=== PATIENT | female | born 1950 | race Caucasian/White ===

== ENCOUNTER 2019-12-25 17:35 | Emergency (ER) | payer MEDICARE, OTHER, SELFPAY ==
--- NOTE | ~2019-12-25 | CT_ITS ---
EXAMINATION: CT abdomen pelvis wo con DATE: 12/25/2019 18:43 INDICATION: Kidney stone TECHNIQUE: Computed tomography (CT) of the abdomen and pelvis was performed without intravenous contr ast. The dose-length product was 208.89 mGy-cm. Automated exposure control and iterative reconstruction technique were employed. COMPARISON: CT dated 09/29/2018 FINDINGS: Bibasilar dependent atelectasis. There is a left breast implant. Heart size normal. No sign ificant pleural or pericardial effusion. The liver, spleen, pancreas, adrenal glands are unremarkable. There is left renal atrophy. Right kidn ey within normal limits. There are pelvic phleboliths. No renal/ureteral stones. There is thickening of the sigmoid:. Large amount of retained fecal material in the colon. No free air. Possible trace fr ee fluid in the pelvis. There is a right hip arthroplasty. There is osteoarthritis of the left hip. T here is levoscoliosis of the lumbar spine. Mild atherosclerosis of the aorta. No aneurysm. No lymphad enopathy. IMPRESSION: 1. No renal/ureteral stones or hydronephrosis. 2: Thickening of the sigmoid colon, suspicious for colitis. No definite obstruction. 3: Severely atrophic left kidney. Reviewed, dictated and finalized at location A. IT[employer] CONTR[employer] CHEMIST IMPRESSION: 1. No renal/ureteral stones or hydronephrosis. 2: Thickening of the sigmoid colon, suspicious for colitis. No definite obstruc tion. 3: Severely atrophic left kidney.
[2019-12-25 17:47] VITALS: BP 100/66; PULSE 106; RESP 18; TEMP 37.8; O2SAT 97
--- NOTE | 2019-12-25 17:58 | ED.NAVMDI ---
HPI - Nausea/Vomiting/Diarrhea General Chief complaint: Nausea/Vomiting/Diarrhea Stated complaint: SYNCOPE/DIARRHEA Time Seen by Provider: 12/25/19 17:57 Source: patient Mode of arrival: ambulatory Limitations: no limitations History of Present Illness HPI Narrative: A 69 y/o female presents to the ED with c/o diarrhea. Pt states that the diarrhea started 1 week ago and has been constant since. She describes the diarrhea as gas with little dribbles of stool. Pt reports frequent urination and ABD bloating, but denies N/V, decrease liquid intake, fever, and chills. She adds that she has slight ABD pain before she has a BM. Pt notes that she was seen at her PCP's office today and was sent to the ED for further evaluation. She does not note having these symptoms before. Pt has a PMHx of asthma and HTN and takes Aspirin and Xarelto daily. MD elicited complaint: diarrhea Onset (ago): week(s) (1) Description of diarrhea: other ( gas with little dribbles ) Associated nausea: No Associated abdominal pain: No Associated symptoms: other (Frequent urination, ABD bloating, slight ABD pain) Related Data Home Medications Medication Instructions Recorded Confirmed aspirin 81 mg tablet,delayed 81 mg PO DAILY 11/05/19 release cetirizine 10 mg tablet 5 mg PO DAILY PRN 11/05/19 duloxetine 60 mg capsule,delayed 60 mg PO DAILY 11/05/19 release famotidine 20 mg tablet 20 mg PO DAILY 11/05/19 lamotrigine 100 mg tablet 100 mg PO BID 11/05/19 magnesium oxide 400 mg PO DAILY 11/05/19 meloxicam 7.5 mg tablet 7.5 mg PO DAILY 11/05/19 diltiazem HCl 90 mg 90 mg PO ONCE cap 11/06/19 capsule,extended release 12 hr polyethylene glycol 3350 17 gram 17 gm PO BID 11/06/19 oral powder packet rivaroxaban 15 mg tablet 15 mg PO DAILY 11/06/19 Allergies Allergy/AdvReac Type Severity Reaction Status Date / Time ciprofloxacin Allergy Unknown Hives Verified 12/25/19 18:20 Iodinated Contrast Media Allergy Unknown Hives Verified 12/25/19 18:20 Quinolones Allergy Unknown unknown Verified 12/25/19 18:20 Contrast Media Allergy Severe RASH Uncoded 12/25/19 18:20 Review of Systems Review of Systems: All systems reviewed & are unremarkable except as noted in HPI and below Constitutional: Constitutional: Denies chills, Denies fever(s) and Denies other (Decreased liquid intake) Gastrointestinal: Gastrointestinal: Reports abdominal pain (Slight), Reports bloating, Reports diarrhea, Denies nausea and Denies vomiting Genitourinary: Genitourinary: Reports nocturia PMFSH Past Medical History Medical History (Updated 12/25/19 @ 19:12 by Og Boswell MD) A-fib Asthma Bulging disc CHF (congestive heart failure) Chronic diastolic heart failure CKD (chronic kidney disease) Depression GERD (gastroesophageal reflux disease) H/O deep venous thrombosis Head ache History of blood transfusion History of breast cancer History of chemotherapy HTN (hypertension) Hypertensive heart disease with heart failure Ocular migraine LANA (obstructive sleep apnea) Peripheral neuropathy Renal disease Shingles Sleep apnea Surgical History Surgical History (Updated 12/25/19 @ 18:08 by Randa Prieto) H/O left mastectomy History of ankle surgery Left History of bilateral knee arthroplasty History of hysterectomy with bilateral oophorectomy History of tonsillectomy Status post hip replacement Right Social History Social History Smoking status: Former smoker Smoking end date: 11/26/73 Alcohol intake: never Gender identity (if verbalized by the patient): Female Exam Narrative: Exam Narrative: General appearance: Well-developed, well-nourished. at the bedside Skin: Normal color Head: Normocephalic, nontraumatic Eyes: Clear conjunctiva ENT: Oropharynx normal, ears normal, nose normal Neck: Supple, nontender Chest and respiratory: Airway patent, no respiratory distress, no accessory muscl
[2019-12-25 18:09] LABS: Basophils Percent Auto 0.3 % (0.2-1.2); Eosinophils Percent Auto 0.6 % (0-4.4); Hematocrit 34.2 % (37.0-47.0); Hemoglobin 11.1 g/dL (12.0-15.0); Immature Granulocyte Absolute 0.03 K/mm3 (0.00-0.031); Immature Granulocyte Percent A 0.4 % (0-0.5); Lymphocytes Absolute Auto 1.19 K/mm3 (0.9-3.2); Lymphocytes Percent Auto 16.6 % (18.3-44.2); Mean Corpuscular HGB Conc 32.5 g/dl (32-36); Mean Corpuscular Hemoglobin 30.7 pg (26-34); Mean Corpuscular Volume 94.5 fl (80-100); Monocytes Absolute Auto 0.8 K/mm3 (0.1-0.6); Monocytes Percent Auto 11.4 % (2.6-8.5); Neutrophils Absolute Auto 5.1 K/mm3 (1.3-6.7); Neutrophils Percent Auto 70.7 % (45.5-73.1); Platelet Count Result 146 k/mm3 (150-375); Red Blood Count 3.62 M/mm3 (4.2-5.4); Red Cell Distribution Width 11.7 % (11.5-14.5); White Blood Count 7.2 K/mm3 (4.5-10.0)
[2019-12-25 18:19] LABS: Alanine Aminotransferase 16 U/L (4-35); Albumin Level 4.1 g/dL (3.5-5.1); Alkaline Phosphatase 81 U/L (38-126); Aspartate Amino Transferase 21 U/L (14-36); Bilirubin,Total 0.7 mg/dL (0.2-1.3); Blood Urea Nitrogen 21 mg/dL (7-17); Calcium 9.2 mg/dL (8.4-10.2); Carbon Dioxide 28 mmol/L (22-30); Chloride 95 mmol/L (98-107); Estimated CRCL calculation 40 ml/min; Estimated Glomerular Filt Rate 49; Glucose 84 mg/dL (65-105); Lipase 87 U/L (23-300); Potassium 4.2 mmol/L (3.4-5.0); Sodium 133 mmol/L (137-145)
[2019-12-25] MEDS: SODIUM CHLORIDE 0.9% IV 1,000 ML 999 ML IV CONT (18:32)
[2019-12-25] MEDS: AMOXICILLIN/CLAVULANATE K 875-125 MG TAB 1 TABLET PO (19:40)
[2019-12-25 19:41] VITALS: BP 186/107; PULSE 110; RESP 18; TEMP 36.9; O2SAT 99
== END 2019-12-25 19:44 | disposition home or self-care (01) ==
PROVIDERS: Emergency Provider Emergency Medicine; PCP Family Medicine
DX: K52.9 Noninfective gastroenteritis and colitis, unspecified (principal); I48.91 Unspecified atrial fibrillation; J45.909 Unspecified asthma, uncomplicated; I13.0 Hypertensive heart and chronic kidney disease with heart failure and stage 1 through stage 4 chronic kidney disease, or unspecified chronic kidney disease; N18.9 Chronic kidney disease, unspecified; I50.32 Chronic diastolic (congestive) heart failure; K21.9 Gastro-esophageal reflux disease without esophagitis; Z85.3 Personal history of malignant neoplasm of breast; Z92.21 Personal history of antineoplastic chemotherapy; G47.33 Obstructive sleep apnea (adult) (pediatric); G62.9 Polyneuropathy, unspecified; Z90.12 Acquired absence of left breast and nipple; Z96.641 Presence of right artificial hip joint; Z87.891 Personal history of nicotine dependence; Z79.82 Long term (current) use of aspirin; Z79.01 Long term (current) use of anticoagulants
CPT/HCPCS: 36415; 74176; 80053; 83690; 85025; 96360; 99284; A9270; J7030

== ENCOUNTER 2020-08-20 12:19 | Emergency (ER) | payer MEDICARE, OTHER, SELFPAY ==
[2020-08-20] VITALS (14 sets, daily range): BP systolic 110–125; BP diastolic 77–96; PULSE 100–119; RESP 16–29; TEMP 37.8; O2SAT 73–94
--- NOTE | ~2020-08-20 | XR_ITS ---
EXAMINATION: XR chest 2V 08/20/2020 13:03 INDICATION: Dyspnea. Chills. Decreased appetite. PROCEDURE: 2 view chest COMPARISON: Comparison to multiple prior studies sequentially, with oldest reviewed study dated 08/27. FINDINGS: The lungs are clear. The cardiomediastinal silhouette is within normal limits. There are no pleural effusions. There is no pneumothorax suspected. There are surgical clips in the left axil la. IMPRESSION: 1: NO ACUTE CARDIOPULMONARY DISEASE. Reviewed, dictated and finalized at location A.
--- NOTE | ~2020-08-20 | CT_ITS ---
EXAMINATION: CT chest wo con DATE: 08/20/2020 15:48 INDICATION: Shortness of breath and cough TECHNIQUE: Computed tomography (CT) of the chest was performed without intravenous contrast. The dose -length product (DLP) was 203.02 mGy-cm. Automated exposure control and iterative reconstruction tech [employer] were employed. COMPARISON: 01/10/2011 FINDINGS: There are innumerable 1 to 2 mm nodules scattered throughout all lung zones. There is mild dependent atelectasis. Changes of left mastectomy with implant reconstruction and left axillary lymph node dissection are again noted. There is no pleural effusion or pneumothorax. No pathologically enl arged thoracic lymph nodes are identified. The heart size is normal. Calcified coronary artery athero sclerosis is noted. There is moderate thoracic spondylosis. There is severe atrophy of the left kidne y. IMPRESSION: 1. Innumerable 1 to 2 mm nodules scattered throughout the lungs which may be infectious or inflammato ry. Reviewed, dictated and finalized at location A. IMPRESSION: 1. Innumerable 1 to 2 mm nodules scattered throughout the lungs which may be in fectious or inflammatory.
--- NOTE | 2020-08-20 12:33 | ECG_ITS ---
Measurements Intervals [place] Rate: 101 P: [place]: 0 QRS: 40 QRSD: 64 T: -9 QT: 304 QTc: 395 Interpretive Statements ATRIAL FIBRILLATION WITH RAPID VENTRICULAR RESPONSE LOW QRS VOLTAGE- DIFFUSE LEADS BORDERLINE T WAVE ABNORMALITY- INFERIOR LEADS BASELINE ARTIFACT- I, II, III, AVR, AVL, AVF, V1, V5-V6 ABNORMAL ECG Electronically Signed On 08-20-2020 20:08:43 CDT by Geraldo Aldana D.O.
[2020-08-20 13:03] LABS: Basophils Percent Auto 0.3 % (0.2-1.2); Eosinophils Absolute Auto 0.2 K/mm3 (0-0.3); Eosinophils Percent Auto 3.9 % (0-4.4); Immature Granulocyte Absolute 0.02 K/mm3 (0.00-0.031); Immature Granulocyte Percent A 0.3 % (0-0.5); Lymphocytes Absolute Auto 0.63 K/mm3 (0.9-3.2); Lymphocytes Percent Auto 10.7 % (18.3-44.2); Mean Corpuscular HGB Conc 33.3 g/dl (32-36); Mean Corpuscular Hemoglobin 31.1 pg (26-34); Mean Corpuscular Volume 93.2 fl (80-100); Mean Platelet Volume 9.3 fl (7.4-10.4); Monocytes Absolute Auto 0.6 K/mm3 (0.1-0.6); Neutrophils Absolute Auto 4.4 K/mm3 (1.3-6.7); Neutrophils Percent Auto 74.8 % (45.5-73.1); Platelet Count Result 185 k/mm3 (150-375); Red Blood Count 3.54 M/mm3 (4.2-5.4); Red Cell Distribution Width 11.8 % (11.5-14.5); White Blood Count 5.9 K/mm3 (4.5-10.0)
[2020-08-20 13:15] LABS: Alanine Aminotransferase 18 U/L (4-35); Albumin Level 4.1 g/dL (3.5-5.1); Alkaline Phosphatase 100 U/L (38-126); Anion Gap 7 mmol/L (8-16); Aspartate Amino Transferase 25 U/L (14-36); Bilirubin,Total 0.7 mg/dL (0.2-1.3); Blood Urea Nitrogen 19 mg/dL (7-17); Calcium 9.1 mg/dL (8.4-10.2); Carbon Dioxide 31 mmol/L (22-30); Chloride 99 mmol/L (98-107); Estimated Glomerular Filt Rate 49; Glucose 121 mg/dL (65-105); Potassium 4.8 mmol/L (3.4-5.0); Sodium 137 mmol/L (137-145)
--- NOTE | 2020-08-20 15:26 | ED.GENADULT ---
HPI - General Adult General Chief complaint: Unspecified Stated complaint: sick for 2 weeks Time Seen by Provider: 08/20/20 15:20 Source: patient Mode of arrival: ambulatory Limitations: no limitations History of Present Illness HPI narrative: Patient is a 6-year-old female complaining of fatigue, sleeping a lot , lack of appetite, nausea, sob and intermittent fever for the past 2 weeks. Patient denies any headache dizziness chest pain shortness of breath abdominal pain vomiting or diarrhea. Related Data Home Medications Medication Instructions Recorded Confirmed aspirin 81 mg tablet,delayed 81 mg PO DAILY 11/05/19 02/04/20 release cetirizine 10 mg tablet 5 mg PO DAILY PRN 11/05/19 02/04/20 lamotrigine 100 mg tablet 100 mg PO BID 11/05/19 02/04/20 magnesium oxide 400 mg PO DAILY 11/05/19 02/04/20 diltiazem HCl 90 mg 90 mg PO ONCE cap 11/06/19 02/04/20 capsule,extended release 12 hr rivaroxaban 15 mg tablet 15 mg PO DAILY 11/06/19 02/04/20 cholecalciferol (vitamin D3) 25 25 mcg PO BID cap 05/07/20 mcg (1,000 unit) capsule Fish Oil 08/20/20 Prilosec 08/20/20 ferrous sulfate 08/20/20 fluticasone propion-salmeterol INHALATION 08/20/20 [Advair Diskus] Allergies Allergy/AdvReac Type Severity Reaction Status Date / Time ciprofloxacin Allergy Unknown Hives Verified 08/20/20 15:14 Iodinated Contrast Media Allergy Unknown Hives Verified 08/20/20 15:14 Quinolones Allergy Unknown unknown Verified 08/20/20 15:14 Contrast Media Allergy Severe RASH Uncoded 08/20/20 12:32 Review of Systems Review of Systems: All systems reviewed & are unremarkable except as noted in HPI and below Constitutional: Constitutional: Denies body ache(s), Denies chills, Denies excessive sweating, Denies headache(s), Denies weakness and Denies weight loss Eyes: Eyes: Denies blurry vision, Denies change in vision and Denies loss of vision ENT: Denies dizziness, Denies ear discharge, Denies headache(s), Denies lip swelling, Denies epistaxis, Denies nasal congestion, Denies neck pain, Denies throat swelling and Denies tongue swelling Cardiovascular: Cardiovascular: Denies chest pain, Denies chest pain at rest, Denies chest pain with activity, Denies diaphoresis, Denies rapid heart rate, Denies edema, Denies irregular heart rhythm, Denies lightheadedness, Denies palpitations, Denies dyspnea and Denies dyspnea on exertion Respiratory: Respiratory: Denies chest congestion, Denies cough, Denies hemoptysis, Reports dyspnea and Denies dyspnea on exertion Gastrointestinal: Gastrointestinal: Denies abdominal pain, Denies melena, Denies hematochezia, Denies diarrhea, Denies nausea, Denies vomiting and Denies hematemesis Musculoskeletal: Musculoskeletal: Denies abnormal gait, Denies deformity, Denies joint swelling, Denies limited range of motion, Denies neck pain and Denies numbness Neurologic: Denies Abnormal speech present, Denies abnormal gait, Denies confusion, Denies dizziness, Denies headache(s), Denies focal weakness, Denies loss of vision, Denies numbness, Denies Other visual disturbances, Denies Sensory deficit (Neuro) and Denies weakness Psychiatric: Psychiatric: Denies confusion, Denies depression, Denies auditory hallucinations, Denies homicidal ideation and Denies suicidal ideation Endocrine: Endocrine: Denies cold intolerance, Denies excessive sweating, Denies fatigue, Denies heat intolerance and Denies palpitations Hematologic/Lymphatic: Hematologic/Lymphatic: Denies easy bleeding and Denies easy bruising Allergic/Immunologic: Allergic/Immunologic: Denies lip swelling, Denies throat swelling and Denies tongue swelling [facility] Social History Social History Smoking status: Former smoker Smoking end date: 11/26/73 Alcohol intake: never Substance use: never Substance use type: does not use Gender identity (if verbalized by the patient): Female Exam Const: General: cooperat
[2020-08-20] MEDS: LACTATED RINGERS 1,000 ML 999 ML IV CONT (15:27)
[2020-08-20 17:26] LABS: Add Urine Microscopic? YES; Appearance Urine Clear (Clear); Bilirubin Urine Negative (Negative); Blood Urine Negative (Negative); Color Urine Yellow (Yellow); Glucose Urine UA Negative (Negative); Ketones Urine Negative (Negative); Leukocyte Esterase Ur Negative LEU/UL (Negative); Nitrate Urine Negative (Negative); Protein Urine Negative (Negative); Specific Grav Ur 1.012 (1.001-1.035); Squamous Epithelial Cell Urine Rare /hpf (Few); Urobilinogen Urine Negative mg/dL (<2.0); WBC Urine 0-3 /hpf
[2020-08-20] MEDS: dilTIAZem HCl INJ 25 MG/5 ML VIAL 10 MG IV PUSH (18:14)
== END 2020-08-20 18:33 | disposition home or self-care (01) ==
PROVIDERS: Emergency Provider Emergency Medicine; PCP Family Medicine
DX: I48.91 Unspecified atrial fibrillation (principal); B34.9 Viral infection, unspecified; Z79.82 Long term (current) use of aspirin; Z79.01 Long term (current) use of anticoagulants; Z87.891 Personal history of nicotine dependence; R00.0 Tachycardia, unspecified
CPT/HCPCS: 36415; 71046; 71250; 80053; 81001; 85025; 93005; 96361; 96374; 99284; J7120

== ENCOUNTER 2020-12-15 14:11 | Outpatient (CLI) | payer MEDICARE, OTHER, SELFPAY ==
--- NOTE | ~2020-12-15 | XR_ITS ---
EXAMINATION: XR lumbar spine 2-3V DATE: 12/15/2020 15:04 INDICATION: Low back pain TECHNIQUE: Anteroposterior and lateral views of the lumbar spine, and cone-down lateral view of the l umbosacral junction were obtained. COMPARISON: CT, 12/25/2019 FINDINGS: There are 35 degrees of thoracolumbar rotolevoscoliosis. There is no fracture. The vertebra l body heights are maintained. There is asymmetric loss of intervertebral disc space on the right at L1-2 through L3-4. There is severe facet osteoarthritis of the lower lumbar spine. There are changes of right total hip arthroplasty. The bowel gas pattern is normal. IMPRESSION: 1. Lumbar spondylosis and levoscoliosis without acute findings. Reviewed, dictated and finalized at location A. GER OF LOSS PREVENTION OPERATIONS
== END 2020-12-15 14:12 | disposition home or self-care (01) ==
LOC: ANHIMG 14:20
PROVIDERS: PCP Family Medicine; Visit Provider Nurse Practitioner Family
DX: M47.896 Other spondylosis, lumbar region (principal)
CPT/HCPCS: 72100

== ENCOUNTER 2021-02-09 12:01 | Outpatient (CLI) | payer MEDICARE, OTHER, SELFPAY ==
--- NOTE | ~2021-02-09 | XR_ITS ---
XR hip LT 2V w AP pelvis DATE: 02/09/2021 12:17 INDICATION: Left hip pain. No injury. TECHNIQUE: AP pelvis. AP, lateral views of left hip COMPARISON: None FINDINGS: Status post right total hip arthroplasty. There is levoscoliosis of the lumbar spine. No pelvic fracture or bone destruction is evident. Mild osteitis pubis. Normal alignment at the pubic symphysis and sacroiliac joints. Degenerative change at the sacroiliac joints but no apparent erosiv e change or any ankylosis. No fracture, dislocation, avascular necrosis or bone destruction of the left hip is evident. Diffuse osteopenia. IMPRESSION: Degenerative change at the sacroiliac joints Mild osteitis pubis Status post right total hip arthroplasty Osteopenia. Reviewed, dictated and finalized at location A.
== END 2021-02-09 12:02 | disposition home or self-care (01) ==
PROVIDERS: PCP Family Medicine; Visit Provider Family Medicine
DX: M85.852 Other specified disorders of bone density and structure, left thigh (principal)
CPT/HCPCS: 73502

== ENCOUNTER 2021-06-01 11:26 | Emergency (ER) | payer MEDICARE, OTHER, SELFPAY ==
[2021-06-01] VITALS (39 sets, daily range): BP systolic 96–171; BP diastolic 73–101; PULSE 74–123; RESP 11–28; TEMP 37.1–38; O2SAT 90–100
--- NOTE | ~2021-06-01 | CT_ITS ---
EXAMINATION: CT diagnostic chest wo con DATE: 06/01/2021 17:58 INDICATION: Chest pain. Generalized weakness. TECHNIQUE: Computed tomography (CT) of the chest was performed without intravenous contrast. The dose -length product was 166.73 mGy-cm. Automated exposure control and iterative reconstruction technique were employed. COMPARISON: CT dated 08/20/2020 FINDINGS: There is a left breast implant. There is atherosclerosis of the aorta and coronary arteries . Cardiomegaly. No significant pleural or pericardial effusion. No thoracic lymphadenopathy. There is severe left renal atrophy with hypertrophy of the right kidney. There are multiple small bilateral p ulmonary nodules measuring 2 mm or less, some of which are calcified. There is a subsolid 3 mm left u pper lobe nodule, image 54. No endobronchial lesions. No focal pneumonia. No pneumothorax. There is m oderate thoracic spondylosis. No acute osseous abnormality. No focal lytic or blastic lesions. IMPRESSION: 1. No acute cardiopulmonary disease. 2: Multiple small bilateral pulmonary nodules measuring 3 mm or less, most likely infectious/inflamm atory. Reviewed, dictated and finalized at location A. IMPRESSION: 1. No acute cardiopulmonary disease. 2: Multiple small bilateral pulmonary nodules measuring 3 mm or less, most lik campbell infectious/inflammatory.
--- NOTE | ~2021-06-01 | XR_ITS ---
EXAMINATION: XR chest 2V EXAM DATE: 06/01/2021 12:20 INDICATION: Weakness, post ablation. TECHNIQUE: Frontal and lateral projections of the chest obtained and reviewed. There is no prior danny dy for comparison. FINDINGS: Cardiomediastinal silhouette is normal. There is cardiac monitoring device. Left axillary surgical clips. Moderate to severe upper lumbar levoscoliosis, moderate thoracic dextroscoliosis. No confluent consolidation, pneumothorax or pleural effusion suspected. IMPRESSION: No acute cardiopulmonary findings. Reviewed, dictated and finalized at location B.
--- NOTE | 2021-06-01 11:43 | ECG_ITS ---
Measurements Intervals [place] Rate: 124 P: [place]: 0 QRS: 23 QRSD: 92 T: 0 QT: 302 QTc: 435 Interpretive Statements MULTIFOCAL ATRIAL TACHYCARDIA ATRIAL PREMATURE COMPLEXES DELAYED PRECORDIAL R/S TRANSITION LOW QRS VOLTAGE IN LIMB LEADS ABNORMAL ECG Electronically Signed On 06-01-2021 11:59:48 CDT by Geraldo Aldana D.O.
[2021-06-01 12:43] LABS: Basophils Percent Auto 0.2 % (0.2-1.2); Eosinophils Absolute Auto 0.1 K/mm3 (0-0.3); Eosinophils Percent Auto 1.4 % (0-4.4); Hematocrit 37.6 % (37.0-47.0); Hemoglobin 12.1 g/dL (12.0-15.0); Immature Granulocyte Absolute 0.04 K/mm3 (0.00-0.031); Immature Granulocyte Percent A 0.5 % (0-0.5); Lymphocytes Absolute Auto 0.81 K/mm3 (0.9-3.2); Lymphocytes Percent Auto 9.6 % (18.3-44.2); Mean Corpuscular HGB Conc 32.2 g/dl (32-36); Mean Corpuscular Hemoglobin 30.1 pg (26-34); Mean Corpuscular Volume 93.5 fl (80-100); Mean Platelet Volume 9.7 fl (7.4-10.4); Monocytes Absolute Auto 1.2 K/mm3 (0.1-0.6); Monocytes Percent Auto 13.7 % (2.6-8.5); Neutrophils Absolute Auto 6.3 K/mm3 (1.3-6.7); Neutrophils Percent Auto 74.6 % (45.5-73.1); Platelet Count Result 146 k/mm3 (150-375); Red Blood Count 4.02 M/mm3 (4.2-5.4); Red Cell Distribution Width 12.9 % (11.5-14.5); White Blood Count 8.5 K/mm3 (4.5-10.0)
[2021-06-01 12:51] LABS: Alanine Aminotransferase 17 U/L (4-35); Albumin Level 4.5 g/dL (3.5-5.1); Alkaline Phosphatase 81 U/L (38-126); Anion Gap 10 mmol/L (8-16); Aspartate Amino Transferase 24 U/L (14-36); Bilirubin,Total 0.9 mg/dL (0.2-1.3); Blood Urea Nitrogen 24 mg/dL (7-17); Calcium 9.5 mg/dL (8.4-10.2); Carbon Dioxide 26 mmol/L (22-30); Chloride 102 mmol/L (98-107); Estimated CRCL calculation 36 ml/min; Estimated Glomerular Filt Rate 37; Glucose 117 mg/dL (65-105); Potassium 4.2 mmol/L (3.4-5.0); Sodium 138 mmol/L (137-145)
[2021-06-01 12:55] LABS: INR 1.3; Prothrombin Time 15.7 Seconds (11.1-14.7)
[2021-06-01] MEDS: SODIUM CHLORIDE 0.9% IV 1,000 ML 999 ML IV CONT ×3 (12:55→16:58)
[2021-06-01 13:15] LABS: Troponin I 0.068 ng/mL (0.000-0.034)
--- NOTE | 2021-06-01 13:24 | ED.WEAKNESS ---
HPI - Weakness General Chief complaint: Weakness <Alphonse Moreno MD - Last Filed: 06/01/21 17:10> Stated complaint: MULTIPLE C/O <Alphonse Moreno MD - Last Filed: 06/01/21 17:10> Time Seen by Provider: 06/01/21 12:20 <Alphonse Moreno MD - Last Filed: 06/01/21 17:10> History of Present Illness HPI Narrative: Patient is a 70-year-old female who presents ER with near syncope. Patient underwent cardiac ablation for atrial fibrillation 1 week ago. On 05/26/2021 she had a loop recorder implanted. She returned to [facility] where all the procedures performed that night because she is bleeding from the area. A stitch was placed and she was discharged home. Since being at home she reports she has been unable to eat or drink due to feeling very fatigued. She reports she has been urinating with great frequency. No diarrhea or constipation. No blood in stool. Patient reports she tried to get out of bed today and became extremely dizzy like she was going to pass out and fell back onto the bed. She suffered no injury. She never lost consciousness. <Alphonse Moreno MD - Last Filed: 06/01/21 17:10> Related Data Home medications: Home Medications Medication Instructions Recorded Confirmed albuterol [Proventil] mcg INHALATION 06/01/21 amlodipine 5 mg PO DAILY 06/01/21 aspirin 81 mg PO DAILY 06/01/21 cetirizine 10 mg PO DAILY 06/01/21 duloxetine 60 mg PO DAILY 06/01/21 famotidine 20 mg PO HS 06/01/21 ferrous sulfate 325 mg PO DAILY 06/01/21 flecainide 50 mg PO Q8H 06/01/21 fluticasone propion-salmeterol 1 inh INHALATION Q12H 06/01/21 [Advair Diskus] lamotrigine 200 mg PO BID 06/01/21 magnesium 06/01/21 meloxicam 7.5 mg PO DAILY 06/01/21 montelukast 10 mg PO DAILY 06/01/21 omeprazole [Prilosec] 20 mg PO BID 06/01/21 ondansetron HCl [Zofran] 4 mg PO Q6H PRN 07/07/21 rivaroxaban [Xarelto] 15 mg PO QPM 06/01/21 vitamin B complex [B 1 tablet PO DAILY 06/01/21 Complex-Vitamin B12] <Alphonse Moreno MD - Last Filed: 06/01/21 17:10> Allergies/Adverse reactions: Allergies Allergy/AdvReac Type Severity Reaction Status Date / Time ciprofloxacin Allergy Rash Verified 06/01/21 11:40 iohexol Allergy Unknown Verified 06/01/21 11:40 [From contrast - CT, X-RAY] <Alphonse Moreno MD - Last Filed: 06/01/21 17:10> Review of Systems Review of Systems: All systems reviewed & are unremarkable except as noted in HPI and below <Alphonse Moreno MD - Last Filed: 06/01/21 17:10> Constitutional: Constitutional: Denies chills, Reports fatigue, Reports fever(s) (Just found to be febrile) and Reports weakness <Alphonse Moreno MD - Last Filed: 06/01/21 17:10> ENT: Denies nasal congestion and Denies sore throat <Alphonse Moreno MD - Last Filed: 06/01/21 17:10> Cardiovascular: Cardiovascular: Denies chest pain, Denies rapid heart rate and Denies radiating jaw, neck or arm pain <Alphonse Moreno MD - Last Filed: 06/01/21 17:10> Respiratory: Respiratory: Reports cough, Denies dyspnea and Denies wheezing <Alphonse Moreon MD - Last Filed: 06/01/21 17:10> Gastrointestinal: Gastrointestinal: Denies abdominal pain, Denies diarrhea, Denies nausea and Denies vomiting <Alphonse Moreno MD - Last Filed: 06/01/21 17:10> Genitourinary: Genitourinary: Reports nocturia and Reports dysuria <Alphonse Moreno MD - Last Filed: 06/01/21 17:10> PMFSH Past Medical History Medical History: Medical History (Updated 06/01/21 @ 20:24 by Willie Mansfield MD) Atrial fibrillation Depression GERD (gastroesophageal reflux disease) Hypertension <Alphonse Moreno MD - Last Filed: 06/01/21 17:10> Surgical History Surgical History: Surgical History (Updated 06/01/21 @ 13:27 by Alphonse Moerno MD) History of radiofrequency ablation procedure for cardiac arrhythmia <Alphonse Moreno MD - Last Filed: 06/01/21 17:10> Social History Social History
[2021-06-01 14:30] LABS: Add Urine Microscopic? YES; Appearance Urine Clear (Clear); Bacteria Urine Trace /hpf; Bilirubin Urine Negative (Negative); Blood Urine Negative (Negative); Color Urine Yellow (Yellow); Glucose Urine UA Negative (Negative); Ketones Urine Negative (Negative); Leukocyte Esterase Ur 2+ LEU/UL (Negative); Nitrate Urine Negative (Negative); Protein Urine 1+ mg/dL (Negative); Specific Grav Ur 1.009 (1.001-1.035); Urobilinogen Urine Negative mg/dL (<2.0)
[2021-06-01 16:14] LABS: Troponin I 0.068 ng/mL (0.000-0.034)
[2021-06-01] MEDS: dilTIAZem HCl INJ 25 MG/5 ML VIAL 10 MG IV PUSH (19:43)
== END 2021-06-01 21:13 | disposition home or self-care (01) ==
PROVIDERS: Emergency Medicine; Emergency Provider Family Medicine; PCP Family Medicine
DX: R53.1 Weakness (principal); I47.1 Supraventricular tachycardia; I48.91 Unspecified atrial fibrillation; K21.9 Gastro-esophageal reflux disease without esophagitis; I10 Essential (primary) hypertension; Z79.01 Long term (current) use of anticoagulants; I49.1 Atrial premature depolarization
CPT/HCPCS: 36415; 71046; 71250; 80053; 81001; 84484; 85025; 85610; 85730; 87077; 87086; 87088; 87186; 93005; 96361; 96374; 96375; 99284; J0131; J7030

== ENCOUNTER 2021-06-21 12:19 | Outpatient (CLI) | payer MEDICARE, OTHER, SELFPAY ==
--- NOTE | ~2021-06-21 | XR_ITS ---
EXAMINATION: XR hip RT min 3V w AP pelvis INDICATION: Right hip pain after fall TECHNIQUE: AP view of the pelvis and three views of the right hip are obtained. COMPARISON: 02/09/2021 FINDINGS: There are changes of right total hip arthroplasty. Bone alignment is normal. There is no fr acture. Phleboliths are noted in the pelvis. IMPRESSION: 1. No acute osseous abnormality. Reviewed, dictated and finalized at location A.
== END 2021-06-21 12:20 | disposition home or self-care (01) ==
LOC: ANHIMG 12:27
PROVIDERS: PCP Family Medicine; Visit Provider Physician Assistant
DX: M25.551 Pain in right hip (principal); Z91.81 History of falling
CPT/HCPCS: 73502

== ENCOUNTER → 2021-07-23 01:09 | Outpatient (CLI) | payer MEDICARE, OTHER, SELFPAY ==
[2021-07-23 22:46] LABS: SARS-CoV-2 RNA PCR Negative
== END ==
PROVIDERS: PCP Family Medicine; Visit Provider Family Medicine
DX: R05 Cough (principal); J02.9 Acute pharyngitis, unspecified; Z20.822 Contact with and (suspected) exposure to COVID-19
CPT/HCPCS: C9803; U0003; U0005

== ENCOUNTER 2021-08-15 14:09 | Outpatient (CLI) | payer MEDICARE, OTHER, SELFPAY ==
--- NOTE | ~2021-08-15 | CT_ITS ---
EXAMINATION: CT BRAIN W/O DATE: 08/15/2021 14:52 INDICATION: Contusion to the head. TECHNIQUE: Computed tomography (CT) of the head was performed without intravenous contrast. The dose- length product was 605.33 mGy-cm. The mA was adjusted according to patient size. Iterative reconstruc tion technique was employed. COMPARISON: CT dated 10/28/2018 FINDINGS: Normal brain parenchymal volume for age. Normal solo-white differentiation. No acute intrac ranial hemorrhage, infarction, mass or mass effect. There are scattered mild periventricular and subc ortical white matter changes, most likely related to small vessel ischemic disease (microangiopathy). No ventriculomegaly or midline shift. Midline sagittal images demonstrate a normal corpus callosum, c raniovertebral junction and sella turcica. Basilar cisterns are patent. Paranasal sinuses and mastoids are pneumatized. No depressed skull fractures. There is mild left fron jaun scalp swelling. IMPRESSION: 1. No acute intracranial abnormality. Reviewed, dictated and finalized at location A.
== END 2021-08-15 14:10 | disposition home or self-care (01) ==
PROVIDERS: PCP Family Medicine; Visit Provider Nurse Practitioner Family
DX: S00.93XA Contusion of unspecified part of head, initial encounter (principal)
CPT/HCPCS: 70450

== ENCOUNTER 2022-01-04 12:32 | Emergency (ER) | payer MEDICARE, OTHER, SELFPAY ==
[2022-01-04] VITALS (7 sets, daily range): BP systolic 132–165; BP diastolic 83–123; PULSE 76–101; RESP 18; TEMP 36.4; O2SAT 98
--- NOTE | ~2022-01-04 | CT_ITS ---
EXAMINATION: CT brain wo con DATE: 01/04/2022 16:19 INDICATION: Generalized headache for 3 days. History of hypertension TECHNIQUE: Computed tomography (CT) of the head was performed without intravenous contrast. The mA wa s adjusted according to patient size. Iterative reconstruction technique was employed. Exam dose: 60 5.33 mGy-cm total exam DLP. COMPARISON: 08/15/2021 CT brain FINDINGS: No intracranial mass lesion or hemorrhage or cerebrovascular accident is detected. No midli ne shift or mass effect. Ventricular size is within normal range for patient age. Nonspecific diminished attenuation of the cerebral white matter is likely due to chronic small vessel ischemic changes. No subdural or epidural hematoma is detected. No orbital mass lesion. Included paranasal sinuses and mastoid air cells are normally aerated. No fracture or bone destruction of the cranial vault. IMPRESSION: No acute intracranial abnormality or significant change since 08/15/2021 Reviewed, dictated and finalized at [facility]. Reviewed, dictated and finalized at location [facility]. NS CUTTER
--- NOTE | 2022-01-04 15:19 | PC.NURSE ---
Pt states she has had a headache x few days and elevated blood pressure .
--- NOTE | 2022-01-04 16:06 | ECG_ITS ---
Measurements Intervals [place] Rate: 94 P: 74 UT: 178 QRS: 22 QRSD: 87 T: 3 QT: 328 QTc: 411 Interpretive Statements SINUS RHYTHM LOW QRS VOLTAGE IN LIMB LEADS CANNOT RULE OUT SEPTAL INFARCT, AGE INDETERMINATE BORDERLINE ST-T WAVE ABNORMALITY- INFERIOR LEADS BASELINE ARTIFACT- I, II, III, AVR, AVL, AVF ABNORMAL ECG Electronically Signed On 01-04-2022 19:55:23 [employer] by Geraldo Aldana D.O.
[2022-01-04 16:56] LABS: Basophils Percent Auto 0.7 % (0.2-1.2); Eosinophils Absolute Auto 0.1 K/mm3 (0-0.3); Eosinophils Percent Auto 2.5 % (0-4.4); Hemoglobin 11.1 g/dL (12.0-15.0); Immature Granulocyte Absolute 0.02 K/mm3 (0.00-0.031); Immature Granulocyte Percent A 0.5 % (0-0.5); Lymphocytes Absolute Auto 1.09 K/mm3 (0.9-3.2); Lymphocytes Percent Auto 24.7 % (18.3-44.2); Mean Corpuscular Hemoglobin 27.7 pg (26-34); Mean Corpuscular Volume 92.3 fl (80-100); Mean Platelet Volume 9.9 fl (7.4-10.4); Monocytes Absolute Auto 0.4 K/mm3 (0.1-0.6); Neutrophils Absolute Auto 2.7 K/mm3 (1.3-6.7); Neutrophils Percent Auto 61.6 % (45.5-73.1); Platelet Count Result 216 k/mm3 (150-375); Red Blood Count 4.01 M/mm3 (4.2-5.4); Red Cell Distribution Width 15.3 % (11.5-14.5); White Blood Count 4.4 K/mm3 (4.5-10.0)
[2022-01-04 17:06] LABS: Alanine Aminotransferase 15 U/L (4-35); Albumin Level 4.4 g/dL (3.5-5.1); Alkaline Phosphatase 154 U/L (38-126); Anion Gap 8 mmol/L (8-16); Aspartate Amino Transferase 29 U/L (14-36); Bilirubin,Total 0.5 mg/dL (0.2-1.3); Blood Urea Nitrogen 24 mg/dL (7-17); Calcium 10.1 mg/dL (8.4-10.2); Carbon Dioxide 27 mmol/L (22-30); Chloride 101 mmol/L (98-107); Estimated CRCL calculation 37 ml/min; Estimated Glomerular Filt Rate 40; Glucose 109 mg/dL (65-110); Potassium 4.7 mmol/L (3.4-5.0); Sodium 136 mmol/L (137-145)
[2022-01-04 17:17] LABS: Troponin I < 0.012 ng/mL (0.000-0.034)
[2022-01-04] MEDS: METOPROLOL TARTRATE INJ 5 MG/5 ML VIAL IV PUSH (17:24)
--- NOTE | 2022-01-04 18:57 | ED.GENADULT ---
HPI - General Adult General Chief complaint: Recheck/Abnormal Lab/Rx Stated complaint: hypertension, headache Time Seen by Provider: 01/04/22 16:04 Source: patient and family Mode of arrival: EMS Limitations: no limitations History of Present Illness HPI narrative: 71-year-old with a history of A. fib, hypertension here with complaints of elevated blood pressure, she states her BP was 210 /160 at home , she states she had home health nurse to came to check on her , was told to go to ER. She denied any chest pain however complains of severe headache which has been ongoing. Patient also states that she had back surgery at [place] on September of 2021. She denies any shortness of breath, nausea or vomiting. Related Data Home Medications Medication Instructions Recorded Confirmed aspirin 81 mg tablet,delayed 81 mg PO DAILY 11/05/19 10/06/21 release magnesium oxide 400 mg PO DAILY 11/05/19 10/06/21 cholecalciferol (vitamin D3) 25 25 mcg PO BID cap 05/07/20 10/06/21 mcg (1,000 unit) capsule Fish Oil 08/20/20 10/06/21 cetirizine 10 mg PO DAILY 06/01/21 10/06/21 ferrous sulfate 325 mg PO DAILY 06/01/21 10/06/21 omeprazole [Prilosec] 20 mg PO BID 06/01/21 10/06/21 rivaroxaban [Xarelto] 15 mg PO QPM 06/01/21 10/06/21 vitamin B complex [B 1 tablet PO DAILY 06/01/21 10/06/21 Complex-Vitamin B12] Allergies Allergy/AdvReac Type Severity Reaction Status Date / Time ciprofloxacin Allergy Unknown Hives Verified 10/05/21 11:23 Iodinated Contrast Media Allergy Unknown Hives Verified 10/05/21 11:23 Quinolones Allergy Unknown unknown Verified 10/05/21 11:23 iohexol Allergy Unknown Verified 10/05/21 11:23 [From contrast - CT, X-RAY] Contrast Media Allergy Severe RASH Uncoded 10/05/21 11:23 PMFSH Past Medical History Medical History A-fib Asthma Atrial fibrillation Atrophy of left kidney Bulging disc CHF (congestive heart failure) Chronic diastolic heart failure CKD (chronic kidney disease) Depression Depression GERD (gastroesophageal reflux disease) GERD (gastroesophageal reflux disease) H/O deep venous thrombosis Head ache History of blood transfusion History of breast cancer History of chemotherapy HTN (hypertension) Hypertension Hypertensive heart disease with heart failure Ocular migraine LANA (obstructive sleep apnea) Peripheral neuropathy Renal disease Shingles Sleep apnea Surgical History Surgical History H/O left mastectomy History of ankle surgery Left History of bilateral knee arthroplasty History of hysterectomy with bilateral oophorectomy History of radiofrequency ablation procedure for cardiac arrhythmia History of tonsillectomy Status post hip replacement Right Family History Family History Sibling Diabetes mellitus Family history of malignant neoplasm of breast in first degree relative Mother Asthma Cerebrovascular accident Father Malignant neoplasm of prostate Family history of lung cancer Family history of malignant neoplasm of breast in first degree relative Social History Social History Social History: Smoking packs per day: 1 Smoking cigarettes per day: 20.0 Years smoked: 40 Smoking pack-years: 40.00 Smoking status: Former smoker Tobacco type: cigarettes Second hand tobacco smoke exposure: No Smoking end date: 11/26/73 Alcohol intake: never Alcohol use details: rarely Substance use: never Substance use type: does not use Gender identity (if verbalized by the patient): Female Sexual Orientation (if Verbalized by the Patient): Straight or Heterosexual Exam Narrative: GENERAL: Well-appearing, well-nourished, and in no acute distress. HEAD: Normocephalic, atraumatic. EYES: PERRLA and EOMI. NECK: Supple. CHEST: Clear
== END 2022-01-04 19:11 | disposition home or self-care (01) ==
PROVIDERS: Emergency Provider Family Medicine; PCP Family Medicine
DX: R51.9 Headache, unspecified (principal); I13.0 Hypertensive heart and chronic kidney disease with heart failure and stage 1 through stage 4 chronic kidney disease, or unspecified chronic kidney disease; N18.9 Chronic kidney disease, unspecified; I50.9 Heart failure, unspecified; Z87.891 Personal history of nicotine dependence; I48.91 Unspecified atrial fibrillation; J45.909 Unspecified asthma, uncomplicated; K21.9 Gastro-esophageal reflux disease without esophagitis; F32.9 Major depressive disorder, single episode, unspecified
CPT/HCPCS: 36415; 70450; 80053; 84484; 85025; 93005; 96374; 99284

== ENCOUNTER 2022-06-20 13:29 | Outpatient (CLI) | payer MEDICARE, OTHER, SELFPAY ==
--- NOTE | 2022-06-20 | ECHO_ITS ---
Patient Info Name: Shelly Woods Age: 71 years : 1950 Gender: Female Ht: 66 in Wt: 160 lbs BSA: 1.85 m2 HR: 65 bpm BP: 95 / 60 mmHg Technical Quality: Fair Exam Date: 06/20/2022 1:59 PM Exam Location: [facility] Patient Status: Outpatient Admit Date: 06/20/2022 Staff Ordering Physician: Stella Ralph Fiscal Manager: Hilda Covington RDCS Attending Provider: Stella Ralph Exam Type: CA echo doppler color flow Study Info Indications R55 - Syncope and collapse Complete two-dimensional, color flow and Doppler transthoracic echocardiogram is performed. Summary 1. Complete two-dimensional, color flow and Doppler transthoracic echocardiogram is performed. 2. Left ventricular chamber dimension is normal. 3. Left ventricular systolic function is normal, estimated at 65-70%. 4. Ventricular septum is sigmoid shaped. No LVOT obstruction. 5. The left ventricular diastolic function is grade I diastolic dysfunction. 6. E/e' 9 is minimally elevated. 7. Left atrial chamber dimension is moderately enlarged. 8. There is mild aortic valve sclerosis. 9. The mitral valve has moderately calcified annulus. 10. There is mild mitral valve regurgitation. 11. No pulmonary hypertension, estimated pulmonary arterial systolic pressure is 18 mmHg. Left Ventricle E/e' 9 is minimally elevated. Ventricular septum is sigmoid shaped. No LVOT obstruction. Left ventricular chamber dimension is normal. Left ventricular systolic function is normal, estimated at 65-70%. The left ventricular diastolic function is grade I diastolic dysfunction. Right Ventricle Right ventricular systolic function is normal and with normal TAPSE 2.5 cm. Right ventricular chamber dimension is normal. Left Atria Left atrial chamber dimension is moderately enlarged. Right Atria Right atrial chamber dimension is normal. Aortic Valve The aortic valve is trileaflet. There is mild aortic valve sclerosis. There is no aortic valve stenosis. There is no aortic valve regurgitation. Pulmonic Valve There is no pulmonic regurgitation. Mitral Valve The mitral valve has moderately calcified annulus. There is no mitral valve stenosis. There is mild mitral valve regurgitation. Tricuspid Valve There is no tricuspid valve regurgitation. No pulmonary hypertension, estimated pulmonary arterial systolic pressure is 18 mmHg. Pericardium/Pleural There is no pericardial effusion. Inferior Vena Cava Normal inferior vena cava with >50% collapse upon inspiration consistent with normal right atrial pressure, 5 mmHg. Aorta The aortic root size at the sinus of Valsalva is normal. Left Ventricular Outflow Tract Name Value Normal LVOT 2D LVOT Diameter 1.9 cm LVOT Doppler LVOT Peak Gradient 4 mmHg LVOT Mean Gradient 3 mmHg LVOT VTI 25 cm LVOT VTI/AV VTI Ratio 0.8 LVOT Stroke Volume 71 ml LVOT CO 4.8 l/min LVOT CI 2.6 l/min/m2
== END 2022-06-20 13:30 | disposition home or self-care (01) ==
LOC: ANHCARD 13:33
PROVIDERS: PCP Family Medicine
DX: R55 Syncope and collapse (principal); I34.0 Nonrheumatic mitral (valve) insufficiency; I70.0 Atherosclerosis of aorta
CPT/HCPCS: 93306

== ENCOUNTER 2022-09-06 14:06 | Outpatient (CLI) | payer MEDICARE, OTHER, SELFPAY ==
--- NOTE | ~2022-09-06 | XR_ITS ---
EXAMINATION: XR forearm LT 2V, XR hand LT min 3V, XR wrist LT w scaphoid DATE: 09/06/2022 15:04 INDICATION: Bruising along the left hand, wrist and distal forearm post fall. TECHNIQUE: 1. AP an lateral views of the left forearm were obtained. 2. Posteroanterior, navicular, oblique, and lateral views of the left wrist were obtained. 3. Dorsal palmar, lateral and oblique views of the left hand were obtained. COMPARISON: none FINDINGS: Diffuse osteopenia. Severe osteoarthritis at the first carpometacarpal joint with remodeling of both sides of the joint space resulting in mild dorsal and radial subluxation. Otherwise normal alignment in the left elbow through the hand. Diffuse osteopenia. No fracture. Additional polyarticular osteoar thritis, moderate to severe at the triscaphe joint, moderate at the second-fourth distal interphalang eal joints and mild at the left elbow and many of the remaining joints at the left hand and wrist. No erosions to suggest inflammatory arthritis. There are several loose osteochondral bodies at the rece ss of the wrist and first carpal metacarpal joints. IMPRESSION: 1. No acute osseous abnormality at the left forearm, hand and wrist.. 2. 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 IMPRESSION: 1. No acute osseous abnormality at the left forearm, hand and wrist.. 2. 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 No acute osseous abnormality at the left forearm, hand and wrist.. 2. 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
[2022-09-06 15:03] LABS: Basophils Percent Auto 0.6 % (0.2-1.2); Eosinophils Absolute Auto 0.1 K/mm3 (0-0.3); Eosinophils Percent Auto 1.5 % (0-4.4); Hemoglobin 12.3 g/dL (12.0-15.0); Immature Granulocyte Absolute 0.01 K/mm3 (0.00-0.031); Immature Granulocyte Percent A 0.2 % (0-0.5); Lymphocytes Absolute Auto 0.94 K/mm3 (0.9-3.2); Lymphocytes Percent Auto 20.3 % (18.3-44.2); Mean Corpuscular HGB Conc 32.4 g/dl (32-36); Mean Corpuscular Hemoglobin 31.3 pg (26-34); Mean Corpuscular Volume 96.7 fl (80-100); Mean Platelet Volume 9.9 fl (7.4-10.4); Monocytes Absolute Auto 0.5 K/mm3 (0.1-0.6); Monocytes Percent Auto 9.7 % (2.6-8.5); Neutrophils Absolute Auto 3.1 K/mm3 (1.3-6.7); Neutrophils Percent Auto 67.7 % (45.5-73.1); Platelet Count Result 166 k/mm3 (150-375); Red Blood Count 3.93 M/mm3 (4.2-5.4); Red Cell Distribution Width 12.9 % (11.5-14.5); White Blood Count 4.6 K/mm3 (4.5-10.0)
[2022-09-06 15:13] LABS: Alanine Aminotransferase 14 U/L (6-35); Albumin Level 4.6 g/dL (3.5-5.1); Alkaline Phosphatase 72 U/L (38-126); Anion Gap 11 mmol/L (8-16); Aspartate Amino Transferase 20 U/L (14-36); Bilirubin,Total 0.5 mg/dL (0.2-1.3); Blood Urea Nitrogen 38 mg/dL (7-17); Calcium 9.5 mg/dL (8.4-10.2); Carbon Dioxide 29 mmol/L (22-30); Chloride 100 mmol/L (98-107); Estimated Glomerular Filt Rate 29; Glucose 117 mg/dL (65-110); Sodium 140 mmol/L (137-145)
== END 2022-09-06 14:07 | disposition home or self-care (01) ==
LOC: ANHLAB 14:09
PROVIDERS: PCP Family Medicine; Visit Provider Physician Assistant
DX: R07.89 Other chest pain (principal); I95.0 Idiopathic hypotension; N39.0 Urinary tract infection, site not specified; M18.12 Unilateral primary osteoarthritis of first carpometacarpal joint, left hand; M19.022 Primary osteoarthritis, left elbow; M19.032 Primary osteoarthritis, left wrist
CPT/HCPCS: 36415; 73090; 73110; 73130; 80053; 85025

== ENCOUNTER 2022-09-07 14:28 | Emergency (ER) | payer MEDICARE, OTHER, SELFPAY ==
[2022-09-07] VITALS (12 sets, daily range): BP systolic 112–198; BP diastolic 60–122; PULSE 75–95; RESP 14–19; TEMP 36.4; O2SAT 97–100
--- NOTE | 2022-09-07 14:45 | ECG_ITS ---
Measurements Intervals [place] Rate: 81 P: 11 ID: [id number] QRS: 51 QRSD: 87 T: 45 QT: 360 QTc: 419 Interpretive Statements SINUS RHYTHM LOW QRS VOLTAGE IN EXTREMITY LEADS [QRS DEFLECTION < 0.5 mV IN LIMB LEADS] SEPTAL MYOCARDIAL INFARCTION , OF INDETERMINATE AGE [40+ ms Q WAVE IN V1/V2] COMPARED TO ECG 01/04/2022 16:30:42 NO SIGNIFICANT CHANGES Electronically Signed On 09-07-2022 15:54:44 CDT by Michael Reece M.D.
[2022-09-07 15:30] LABS: Basophils Percent Auto 0.4 % (0.2-1.2); Eosinophils Absolute Auto 0.1 K/mm3 (0-0.3); Eosinophils Percent Auto 1.1 % (0-4.4); Hematocrit 37.2 % (37.0-47.0); Hemoglobin 12.1 g/dL (12.0-15.0); Immature Granulocyte Absolute 0.01 K/mm3 (0.00-0.031); Immature Granulocyte Percent A 0.2 % (0-0.5); Immature Platelet Fraction Pct 3.2 % (0.9-11.2); Lymphocytes Absolute Auto 0.78 K/mm3 (0.9-3.2); Lymphocytes Percent Auto 17.1 % (18.3-44.2); Mean Corpuscular HGB Conc 32.5 g/dl (32-36); Mean Corpuscular Hemoglobin 31.2 pg (26-34); Mean Corpuscular Volume 95.9 fl (80-100); Mean Platelet Volume 9.6 fl (7.4-10.4); Monocytes Absolute Auto 0.4 K/mm3 (0.1-0.6); Neutrophils Absolute Auto 3.3 K/mm3 (1.3-6.7); Neutrophils Percent Auto 72.2 % (45.5-73.1); Platelet Count Result 158 k/mm3 (150-375); Red Blood Count 3.88 M/mm3 (4.2-5.4); Red Cell Distribution Width 12.7 % (11.5-14.5); White Blood Count 4.6 K/mm3 (4.5-10.0)
[2022-09-07 15:40] LABS: Alanine Aminotransferase 15 U/L (6-35); Albumin Level 4.7 g/dL (3.5-5.1); Alkaline Phosphatase 78 U/L (38-126); Anion Gap 9 mmol/L (8-16); Aspartate Amino Transferase 22 U/L (14-36); Bilirubin,Total 0.5 mg/dL (0.2-1.3); Blood Urea Nitrogen 39 mg/dL (7-17); Calcium 9.4 mg/dL (8.4-10.2); Carbon Dioxide 30 mmol/L (22-30); Chloride 100 mmol/L (98-107); Estimated CRCL calculation 26 ml/min; Estimated Glomerular Filt Rate 32; Glucose 103 mg/dL (65-110); Potassium 4.6 mmol/L (3.4-5.0); Sodium 139 mmol/L (137-145)
[2022-09-07 15:57] LABS: Add Urine Microscopic? YES; Appearance Urine Clear (Clear); Bilirubin Urine Negative (Negative); Blood Urine Negative (Negative); Color Urine Yellow (Yellow); Glucose Urine UA Negative (Negative); Ketones Urine Negative (Negative); Leukocyte Esterase Ur Negative LEU/UL (Negative); Nitrate Urine Negative (Negative); Protein Urine 1+ mg/dL (Negative); Specific Grav Ur 1.026 (1.001-1.035); Squamous Epithelial Cell Urine Rare /hpf (Few); Urobilinogen Urine Negative mg/dL (<2.0); WBC Urine 0-3 /hpf
[2022-09-07] MEDS: SODIUM CHLORIDE 0.9% IV 1,000 ML 500 ML IV CONT (16:50)
--- NOTE | 2022-09-07 18:08 | ED.GENADULT ---
HPI - General Adult General Chief complaint: Recheck/Abnormal Lab/Rx Stated complaint: low blood pressure Time Seen by Provider: 09/07/22 14:38 History of Present Illness HPI narrative: 72-year-old female history of hypertension and hypotension presenting the emergency department for evaluation of low blood pressure. Patient states that she has had been having intermittent issues of both high and low blood pressures. Patient states that she has metoprolol to take if her blood pressure is running too high and also has midodrine to take if her blood pressure is running too low. Patient states today she was having some issues of dizziness with ambulation. Patient does have a history of congestive heart failure, A. fib, chronic kidney disease, hypertension. Related Data Home Medications Medication Instructions Recorded Confirmed aspirin 81 mg tablet,delayed 81 mg PO DAILY 11/05/19 09/06/22 release cholecalciferol (vitamin D3) 25 25 mcg PO BID 05/07/20 09/06/22 mcg (1,000 unit) capsule cetirizine 10 mg capsule 10 mg PO DAILY 06/01/21 09/06/22 omeprazole 20 mg capsule,delayed 20 mg PO BID 06/01/21 09/06/22 release rivaroxaban 15 mg tablet (Xarelto) 15 mg PO QPM 06/01/21 09/06/22 vitamin B complex (B 1 tablet PO DAILY 06/01/21 09/06/22 Complex-Vitamin B12 tablet) metoprolol tartrate 50 mg tablet 25 mg PO DAILY PRN 09/06/22 09/06/22 Allergies Allergy/AdvReac Type Severity Reaction Status Date / Time ciprofloxacin Allergy Unknown Hives Verified 09/07/22 15:51 Iodinated Contrast Media Allergy Unknown Hives Verified 09/07/22 15:51 Quinolones Allergy Unknown unknown Verified 09/07/22 15:51 iohexol Allergy Unknown Verified 09/07/22 15:51 [From contrast - CT, X-RAY] Contrast Media Allergy Severe RASH Uncoded 09/06/22 13:29 Review of Systems Review of Systems: CONSTITUTIONAL: Denies fever, chills, or sweats. EYES: Denies visual changes, redness, or discharge. ENT: Denies rhinorrhea, congestion, sore throat, or otalgia. CARDIOVASCULAR: Denies chest pain, palpitations, or edema. RESPIRATORY: Denies cough or dyspnea. GASTROINTESTINAL: Denies abdominal pain, nausea, vomiting, or diarrhea. GENITOURINARY: Denies dysuria or hematuria. SKIN: Denies rash or itching. MUSCULOSKELETAL: Denies back pain, joint pain, or myalgia. NEUROLOGIC: Denies headache, numbness, or weakness. [facility] Past Medical History Medical History (Updated 09/08/22 @ 00:00 by Background Daemon) A-fib Asthma Atrial fibrillation Atrophy of left kidney Bulging disc CHF (congestive heart failure) Chronic diastolic heart failure CKD (chronic kidney disease) Depression Depression GERD (gastroesophageal reflux disease) GERD (gastroesophageal reflux disease) H/O deep venous thrombosis Head ache History of blood transfusion History of breast cancer History of chemotherapy HTN (hypertension) Hypertension Hypertensive heart disease with heart failure Ocular migraine LANA (obstructive sleep apnea) Peripheral neuropathy Renal disease Shingles Sleep apnea Surgical History Surgical History H/O left mastectomy History of ankle surgery Left History of bilateral knee arthroplasty History of hysterectomy with bilateral oophorectomy History of radiofrequency ablation procedure for cardiac arrhythmia History of tonsillectomy Status post hip replacement Right Family History Family History Sibling Diabetes mellitus Family history of malignant neoplasm of breast in first degree relative Mother Asthma Cerebrovascular accident Father Malignant neoplasm of prostate Family history of lung cancer Family history of malignant neoplasm of breast in first degree relative Social History Social History Social History: Smoking packs per day: 1 Smoking cigarettes per day: 20.0 Years
== END 2022-09-07 18:40 | disposition home or self-care (01) ==
PROVIDERS: Emergency Provider Emergency Medicine; PCP Family Medicine
DX: R42 Dizziness and giddiness (principal); N17.9 Acute kidney failure, unspecified; I48.91 Unspecified atrial fibrillation; I13.0 Hypertensive heart and chronic kidney disease with heart failure and stage 1 through stage 4 chronic kidney disease, or unspecified chronic kidney disease; N18.9 Chronic kidney disease, unspecified; I50.32 Chronic diastolic (congestive) heart failure; G47.33 Obstructive sleep apnea (adult) (pediatric); G62.9 Polyneuropathy, unspecified; G47.30 Sleep apnea, unspecified; K21.9 Gastro-esophageal reflux disease without esophagitis; Z96.641 Presence of right artificial hip joint; Z96.653 Presence of artificial knee joint, bilateral; Z90.12 Acquired absence of left breast and nipple; Z90.710 Acquired absence of both cervix and uterus; Z90.722 Acquired absence of ovaries, bilateral; Z86.718 Personal history of other venous thrombosis and embolism; Z92.21 Personal history of antineoplastic chemotherapy; Z85.3 Personal history of malignant neoplasm of breast; Z87.891 Personal history of nicotine dependence; Z79.82 Long term (current) use of aspirin
CPT/HCPCS: 36415; 80053; 81001; 83735; 84443; 85025; 85055; 93005; 96360; 96361; 99283; J7030

== ENCOUNTER 2022-11-01 08:10 | Inpatient (IN) | payer MEDICARE, OTHER, SELFPAY ==
[2022-11-01] VITALS (30 sets, daily range): BP systolic 66–184; BP diastolic 51–129; PULSE 92–136; RESP 13–28; TEMP 36.4–36.5; O2SAT 55–100; BMI 25.6
--- NOTE | ~2022-11-01 | XR_ITS ---
XR hip RT min 2V DATE: 11/01/2022 08:57 INDICATION: Fall, injury of right hip TECHNIQUE: AP and crosstable lateral views of right hip COMPARISON: 11/01/2022 right femur 06/21/2021 right hip FINDINGS: Status post right total hip arthroplasty. There is superolateral dislocation of the right f emur at the right hip joint. There is extensive postoperative change from lumbar spine and sacroiliac surgical fusion.. IMPRESSION: Superior lateral dislocation at the right total hip prosthesis Reviewed, dictated and finalized at location B. IRATORY EQUIPMENT ASSISTANT
--- NOTE | ~2022-11-01 | XR_ITS ---
XR chest 1V portable 11/01/2022 09:35 Indication: Status post fall. Syncope. Procedure: AP portable chest Comparison: Comparison to multiple prior studies sequentially, with oldest reviewed study dated 02/2018. Findings: Heart size normal. No focal air space disease, pulmonary edema, pleural effusion or suspect ed pneumothorax. There are Gong rods overlying the thoracic spine. There are surgical clips in the left axilla. Impression: 1: No acute cardiopulmonary disease. Reviewed, dictated and finalized at location A. OMER SALES SPECIALIST Impression: 1: No acute cardiopulmonary disease.
--- NOTE | ~2022-11-01 | XR_ITS ---
XR femur RT min 2V DATE: 11/01/2022 08:58 INDICATION: Fall 3 days ago. TECHNIQUE: AP and crosstable lateral views right femur COMPARISON: None FINDINGS: There is superior lateral dislocation at the right total hip replacement. No femoral fracture is evident. Prominent tricompartment osteoarthritis involving particularly the medial compartment. Chondrocalcino sis at the knee joint. There is osteopenia. IMPRESSION: Superolateral dislocation of right total hip arthroplasty Prominent osteoarthritis at right knee Right knee chondrocalcinosis Reviewed, dictated and finalized at location B. LIANCE ASSOCIATE
--- NOTE | ~2022-11-01 | CT_ITS ---
EXAMINATION: CT cervical spine wo con DATE: 11/01/2022 09:45 INDICATION: TECHNIQUE: Computed tomography (CT) of the cervical spine was performed without intravenous contrast. The dose-length product was 384 mGy-cm. Automated exposure control and iterative reconstruction tech nique were employed. COMPARISON: None FINDINGS: There is loss of disc height at C4-5, C5-6 and C6-7. There is degenerative anterolisthesis at C4-5. Partially visualized screws at T3 transfixing the upper thoracic spine. There is evidence fo r ostial lysis surrounding the screws. There is uncinate hypertrophy at C4-5, C5-6 and C6-7. There is moderate multilevel facet hypertrophy. Odontoid process is normal. There is intracranial atheroscler osis. IMPRESSION: 1. No acute abnormality of the cervical spine. 2: Surgical changes of the upper thoracic spine at T3 noted with ostial lysis surrounding the pedicle screws. 3: Moderate-severe cervical spondylosis. Reviewed, dictated and finalized at location A. [facility] NURSE STAFF IMPRESSION: 1. No acute abnormality of the cervical spine. 2: Surgical changes of the upper thoracic spine at T3 noted with ostial lysis s urrounding the pedicle screws. 3: Moderate-severe cervical spondylosis.
--- NOTE | ~2022-11-01 | XR_ITS ---
XR hip RT 1V 11/01/2022 11:15 Indication: Post reduction right hip Procedure: AP view of the right hip Comparison: Comparison to multiple prior studies sequentially, with oldest reviewed study dated 02/2018. Findings: Right total hip arthroplasty is in anatomic alignment post reduction. No fracture or trauma tic malalignment. There are postoperative changes consistent with fusion at the lumbosacral junction. Impression: 1: Anatomic alignment of right hip arthroplasty post reduction. Reviewed, dictated and finalized at location A. CTOR PART Impression: 1: Anatomic alignment of right hip arthroplasty post reduction.
--- NOTE | ~2022-11-01 | CT_ITS ---
EXAMINATION: CT brain wo con DATE: 11/01/2022 09:44 INDICATION: Head injury. Status post fall. TECHNIQUE: Computed tomography (CT) of the head was performed without intravenous contrast. The dose- length product was 605.33 mGy-cm. Automated exposure control and iterative reconstruction technique w ere employed. COMPARISON: 01/04/2022 FINDINGS: Brain parenchymal volume is normal for age. No acute intracranial hemorrhage, infarction, m ass or mass effect. No ventriculomegaly or midline shift. Basilar cisterns are patent. Paranasal sinu ses and mastoids are pneumatized. No depressed skull fractures. Midline sagittal images are normal. T here are scattered mild periventricular and subcortical white matter changes, most likely related to small vessel ischemic disease (microangiopathy). IMPRESSION: 1. No acute intracranial abnormality. Reviewed, dictated and finalized at location A. NOGRAPHER ASSISTANT
--- NOTE | 2022-11-01 08:26 | ECG_ITS ---
Measurements Intervals [place] Rate: 114 P: [place]: 0 QRS: 72 QRSD: 81 T: 61 QT: 315 QTc: 435 Interpretive Statements SINUS TACHYCARDIA ABNORMAL RHYTHM ECG COMPARED TO ECG 09/07/2022 15:05:53 SINUS TACHYCARDIA NOW PRESENT Electronically Signed On 11-01-2022 15:05:22 NEEDLE BAR MOLDER by Michael Reece M.D.
[2022-11-01 08:57] LABS: Alanine Aminotransferase 13 U/L (6-35); Albumin Level 4.4 g/dL (3.5-5.1); Alkaline Phosphatase 82 U/L (38-126); Anion Gap 7 mmol/L (8-16); Aspartate Amino Transferase 25 U/L (14-36); Blood Urea Nitrogen 43 mg/dL (7-17); Calcium 9.4 mg/dL (8.4-10.2); Carbon Dioxide 34 mmol/L (22-30); Chloride 95 mmol/L (98-107); Estimated CRCL calculation 35 ml/min; Estimated Glomerular Filt Rate 44; Glucose 119 mg/dL (65-110); Potassium 3.9 mmol/L (3.4-5.0); Sodium 136 mmol/L (137-145)
[2022-11-01 09:02] LABS: Basophils Percent Auto 0.3 % (0.2-1.2); Eosinophils Absolute Auto 0.1 K/mm3 (0-0.3); Eosinophils Percent Auto 0.6 % (0-4.4); Hematocrit 41.5 % (37.0-47.0); Hemoglobin 13.9 g/dL (12.0-15.0); Immature Granulocyte Absolute 0.03 K/mm3 (0.00-0.031); Immature Granulocyte Percent A 0.3 % (0-0.5); Lymphocytes Absolute Auto 1.47 K/mm3 (0.9-3.2); Lymphocytes Percent Auto 15.5 % (18.3-44.2); Mean Corpuscular HGB Conc 33.5 g/dl (32-36); Mean Corpuscular Hemoglobin 31.4 pg (26-34); Mean Corpuscular Volume 93.7 fl (80-100); Mean Platelet Volume 10.5 fl (7.4-10.4); Monocytes Absolute Auto 0.9 K/mm3 (0.1-0.6); Monocytes Percent Auto 9.7 % (2.6-8.5); Neutrophils Percent Auto 73.6 % (45.5-73.1); Platelet Count Result 164 k/mm3 (150-375); Red Blood Count 4.43 M/mm3 (4.2-5.4); White Blood Count 9.5 K/mm3 (4.5-10.0)
[2022-11-01] MEDS: MORPHINE SULFATE (*CRX) 4 MG/ML INJ IV PUSH (09:06)
[2022-11-01] MEDS: ONDANSETRON INJ 4 MG/2 ML VIAL IV PUSH (09:06)
--- NOTE | 2022-11-01 09:23 | PC.NURSE ---
after giving morphine pt's O2 saturation dropped into the 50's. pt immediately placed on 4L nasal cannula. pt now sating at 97%
--- NOTE | 2022-11-01 09:37 | PC.NURSE ---
pt to CT at this time.
[2022-11-01 09:40] LABS: Troponin I 0.036 ng/mL (0.000-0.034)
[2022-11-01] MEDS: SODIUM CHLORIDE 0.9% IV 500 ML 999 ML IV CONT (09:52)
--- NOTE | 2022-11-01 10:06 | ED.FALL ---
HPI - Fall General Chief Complaint: Fall <Lolis Mckeon PA-C - Last Filed: 11/01/22 16:15> Stated Complaint: glf, right femur pain <Lolis Mckeon PA-C - Last Filed: 11/01/22 16:15> Time Seen by Provider: 11/01/22 09:12 <Lolis Mckeon PA-C - Last Filed: 11/01/22 16:15> Source: patient and family <MONTEZ Mccabe Last Filed: 11/01/22 16:15> Mode of arrival: EMS <Lolis Mckeon PA-C - Last Filed: 11/01/22 16:15> Limitations: no limitations <Lolis Mckeon PA-C - Last Filed: 11/01/22 16:15> History of Present Illness HPI Narrative: This is a 72-year-old female that presents to the emergency department after a syncopal episode 3 days ago with right hip pain. Reports she does have history of syncopal episodes. She has had a couple of them since . Reports feeling lightheaded and then trying to catch herself on the wall and passing out. Reports she had her right leg tangled underneath her. She has had a hip replacement on this side with a doctor at [facility]. She thinks about 7 years ago. No other focal injuries or complaints. Reports sometimes the pain makes her feel as if it is difficult to breeze. Denies fever, vision changes, chest pain, palpitations, vomiting, focal numbness or weakness. <Lolis Mckeon PA-C - Last Filed: 11/01/22 16:15> Related Data Home Medications: Home Medications Medication Instructions Recorded Confirmed aspirin 81 mg tablet,delayed 81 mg PO DAILY 11/05/19 09/06/22 release cholecalciferol (vitamin D3) 25 25 mcg PO BID 05/07/20 09/06/22 mcg (1,000 unit) capsule cetirizine 10 mg capsule 10 mg PO DAILY 06/01/21 09/06/22 omeprazole 20 mg capsule,delayed 20 mg PO BID 06/01/21 09/06/22 release rivaroxaban 15 mg tablet (Xarelto) 15 mg PO QPM 06/01/21 09/06/22 vitamin B complex (B 1 tablet PO DAILY 06/01/21 09/06/22 Complex-Vitamin B12 tablet) metoprolol tartrate 50 mg tablet 25 mg PO DAILY PRN 09/06/22 09/06/22 <Lolis Mckeon PA-C - Last Filed: 11/01/22 16:15> Allergies/Adverse Reactions: Allergies Allergy/AdvReac Type Severity Reaction Status Date / Time ciprofloxacin Allergy Unknown Hives Verified 09/07/22 15:51 Iodinated Contrast Media Allergy Unknown Hives Verified 09/07/22 15:51 Quinolones Allergy Unknown unknown Verified 09/07/22 15:51 iohexol Allergy Unknown Verified 09/07/22 15:51 [From contrast - CT, X-RAY] Contrast Media Allergy Severe RASH Uncoded 09/06/22 13:29 <Lolis Mckeon PA-C - Last Filed: 11/01/22 16:15> Review of Systems Review of Systems: CONSTITUTIONAL: Denies fever EYES: Denies visual changes ENT: Denies rhinorrhea, congestion, sore throat CARDIOVASCULAR: Denies chest pain, palpitations, or edema. RESPIRATORY: Reports dyspnea. Denies cough GASTROINTESTINAL: Denies abdominal pain, nausea, vomiting GENITOURINARY: Denies dysuria MUSCULOSKELETAL: Reports joint pain and myalgia. Denies back pain NEUROLOGIC: Denies numbness, or weakness. PSYCHIATRIC: Reports depression. <Lolis Mckeon PA-C - Last Filed: 11/01/22 16:15> All systems reviewed & are unremarkable except as noted in HPI and below <Lolis Mckeon PA-C - Last Filed: 11/01/22 16:15> [facility] Past Medical History Medical History: Medical History (Updated 11/01/22 @ 15:55 by Lolis Mckeon PA-C) Asthma Atrial fibrillation Atrophy of left kidney Bulging disc Cancer of left breast Status post mastectomy and chemotherapy. Chronic diastolic heart failure Chronic kidney disease Deep venous thrombosis Depression Gastroesophageal reflux disease Hypertension Obstructive sleep apnea Ocular migraine Peripheral neuropathy Shingles <Lolis Mckeon PA-C - Last Filed: 11/01/22 16:15> Surgical History Surgical History: Surgical History (Updated 11/01/22 @ 15:47 by Yanet Dean PA-C) History of ankle surgery Left History of bilateral knee arthroplasty History of hysterectomy
[2022-11-01 10:33] LABS: Influenza A QL RT-PCR Negative (Negative); Influenza B QL RT-PCR Negative (Negative); SARS-CoV-2 RNA PCR Negative
[2022-11-01] MEDS: PROPOFOL IV EMULSION 200 MG/20 ML VIAL 75 MG IV PUSH (10:54)
[2022-11-01 12:29] LABS: Troponin I 0.032 ng/mL (0.000-0.034)
--- NOTE | 2022-11-01 12:51 | PC.NURSE ---
1100: Dr. Boswell administered 100mg of Propofol IV push. 1105: Right hip reduction successful.
[2022-11-01] MEDS: SODIUM CHLORIDE 0.9% IV 1,000 ML 999 ML IV CONT (13:47)
--- NOTE | 2022-11-01 13:48 | PC.NURSE ---
SUNG Danielle made aware of pt's blood pressure.
[2022-11-01 15:42] LABS: Troponin I 0.037 ng/mL (0.000-0.034)
--- NOTE | 2022-11-01 16:00 | PM.IMHP ---
H&P: HPI History of Present Illness Date/Time: 11/01/22 16:00 Chief Complaint: Right hip pain after fall. Narrative: This is a 72-year-old female with multiple medical problems including atrial fibrillation/flutter status post cardiac ablation and Watchman procedure, heart failure with preserved ejection fraction, chronic kidney disease, GERD, asthma, and anemia who presented to the emergency department from home for evaluation of right hip pain after a fall on Sunday. It is apparently not unusual for her to have episodes of lightheadedness and dizziness and sometime on Sunday she had such an episode. At that time she was standing against the wall and her notes that she slid down the wall and her right leg got ?tangled? underneath of her. She had pain in her right upper leg there after which she assumed was due to a pulled muscle and her helped her to bed where she has been for the last several days. She has been taking muscle relaxers without much benefit and today she came in for evaluation where she was found to have dislocation of a prosthetic right hip which has subsequently been reduced. Post reduction she was hypoxic and hypotensive following conscious sedation with propofol all and she is being admitted in this setting for closer observation. Regarding the syncopal episodes, this has been an ongoing problem for the patient and she has a loop recorder in place which apparently has not shown any significant dysrhythmias although recently she was noted to be back in atrial fibrillation and atrial flutter. According to the patient she had a cardiac catheterization done just 2 weeks ago by her starch and prosize mixer, Dr. Javier Brooks at [facility]. At this time she has no significant complaints but she is hungry as she has been in the ER for a majority of the afternoon. She denies head trauma, fever, chills, sweats, cold and flu symptoms, chest pain, pleuritic pain, shortness a breath, vomiting, and diarrhea. She also denies paresthesias, skin color, temperature changes of the right leg. Review of Systems Review of Systems: Twelve systems were reviewed and are negative except for as per HPI. [facility] Past Medical History Medical History (Updated 11/01/22 @ 22:06 by Yanet Dean PA-C) Asthma Atrial fibrillation Atrial flutter Atrophy of left kidney Bulging disc Cancer of left breast Status post mastectomy and chemotherapy. Chronic diastolic heart failure Chronic kidney disease Deep venous thrombosis Depression Gastroesophageal reflux disease Hypertension Obstructive sleep apnea Ocular migraine Peripheral neuropathy Shingles Surgical History Surgical History (Updated 11/01/22 @ 22:07 by Yanet Dean PA-C) History of ankle surgery Left History of bilateral knee arthroplasty History of cardiac catheterization History of hysterectomy with bilateral oophorectomy History of left mastectomy History of loop recorder History of radiofrequency ablation procedure for cardiac arrhythmia History of right hip replacement History of spinal surgery History of tonsillectomy Presence of Watchman left atrial appendage closure device Family History Family History Sibling Diabetes mellitus Family history of malignant neoplasm of breast in first degree relative Mother Asthma Cerebrovascular accident Father Malignant neoplasm of prostate Family history of lung cancer Family history of malignant neoplasm of breast in first degree relative Social History Social History (Updated 11/01/22 @ 22:08 by Yanet Dean PA-C) Social History: Surrogate medical decision maker: Oneil Woods, spouse. Code status: Full code. Smoking packs per day: 1 Smoking cigarettes per day: 20.0 Years smoked: 40 Smoking pack-years: 40.00 Smoking status: Former smoker Tobacco type: cigarettes Second hand tobacco smoke exposure: No Smoking end date: 11/26/[birth year]
[2022-11-01] MEDS: BENZOCAINE/MENTHOL (*BKC) 18 EA LOZENGE 1 LOZENGE PO (21:40)
--- NOTE | 2022-11-01 22:35 | ADMGEN ---
This patient, Shelly Woods, was admitted to [facility] Surg Room 315-01. Patient/family oriented to hospital policies and general routines including ID bracelet, bed and alarms, visiting hours, pain management, procedures, bathroom and other care routines, personal items, smoking policy, room service/diet, and visiting hours. Information on how to activate the Rapid Response Team has been discussed. Patient/Family are encouraged to report perceived risks to care and to ask questions if they do not understand what they are told or what they should do. arrived around 2000
[2022-11-02] VITALS (11 sets, daily range): BP systolic 88–136; BP diastolic 52–85; PULSE 83–98; RESP 14–18; TEMP 36.2–37.2; O2SAT 96–98; BMI 11.0
[2022-11-02] MEDS: CALCIUM CARBONATE (TUMS) 500 MG (200 MG ELEMENTAL) PO ×2 (01:43→10:54)
[2022-11-02] MEDS: MIDODRINE HCL 2.5 MG TABLET PO (04:03)
[2022-11-02] MEDS: SODIUM CHLORIDE 0.9% IV 250 ML 100 ML IV CONT (04:26)
--- NOTE | 2022-11-02 04:27 | PC.NURSE ---
called MD Price bs 69, 1 cup of apple juice given, bp soft 88/52, c/o dizziness. Requested midodrine early on pt 2.5 mg po and fluid bolus. hypoglycemia protocol started. continue to monitor.
[2022-11-02 04:33] LABS: Glucose Point of Care 69 mg/dl (65-105)
[2022-11-02 04:46] LABS: Glucose Point of Care 67 mg/dl (65-105)
[2022-11-02 04:46] LABS: Glucose Point of Care 61 mg/dl (65-105)
[2022-11-02 05:08] LABS: Glucose Point of Care 88 mg/dl (65-105)
[2022-11-02] MEDS: DEXTROSE 5% 1,000 ML 1,000 ML 100 ML IVPB (05:09)
--- NOTE | 2022-11-02 05:09 | PC.NURSE ---
pt bp stable 139/85 bs 88 now.
--- NOTE | 2022-11-02 07:42 | PM.CNOR ---
Assessment and Plan Assessment and plan (1) Dislocation of hip, right, closed: Qualifiers: Encounter type: initial encounter Qualified Code(s): S73.004A - Unspecified dislocation of right hip, initial encounter Code(s): S73.004A - Unspecified dislocation of right hip, initial encounter Status: Acute Assessment and Plan: patient is a 72-year-old female who presented to the emergency room yesterday with dislocation of right hip replacement. She had a syncopal episode where she suddenly passed out. Her tried to lower her down and she believes that her right hip flexed underneath her and it was dislocated and she could not move but for some reason she did not come into the emergency room until a day later. This happened the day before. The emergency room physician performed a closed reduction successfully and she was placed in a knee immobilizer. The knee immobilizer the immobilizer is short on the a 20 in I believe we will see if we can get a longer 1 that will give her more protection against flexion of her knee and therefore flexion of the hip. She had her right hip replaced at [place] in approximately [address] Sheriff and did very well afterwards and has had no problems until this episode 2 days ago. Subsequent to her hip replacement she had a lower lumbar fusion with hardware fusing to the sacrum. This was done last year. Unfortunately this puts her at higher risk for dislocation of her hip replacement and in particular higher risk for recurrent hip dislocation. She normally walks with a Rollator walker inside the house and outside the house she rarely goes out except for doctor's appointments and walks arm and arm with her . She is limited in her walking distance due to fatigue. She has atrial fibrillation and atrial flutter and has a longer history of syncopal episodes the come on gradually and with some morning so that she can find a place to set but this last episode came on quite suddenly causing her to pass out and she was admitted for evaluation has a Holter monitor on currently. On exam she has equal leg lengths and rotation indicating the hip is in proper alignment currently. She denies numbness or tingling currently. She wiggles her toes and foot up and down. She is in no pain currently. The x-rays we have are a simple AP view before while the hip was dislocated and then a closed reduction view with a hip reduced. Of course she will need additional views to assess the version of the cup and so forth but that does not have to be done here and it will not affect her current management. We will ask physical therapy to emphasize hip precautions and the she may be weight-bearing as tolerated in a knee immobilizer and I would like to wear the knee block in knee immobilizer multimedia technician for approximately 6 weeks. Some scarring will occur which will give her some improved stability in the hip however she is certainly at higher risk for recurrent dislocation I have discussed this with her and if that occurs she might need additional surgery to modify the arthroplasty to prevent recurrent dislocation. I would recommend that she follow-up with her orthopedic surgeon in the next week the in case her orthopedic surgeon wants any modification of this treatment regimen currently. From an orthopedic standpoint she can be discharged at any time she is felt stable from a cardiac standpoint. I will be happy to see her back as needed. I have left orders in the discharge instructions. 30 minutes were spent total care this patient History of Present Illness HPI Consult date: 11/02/22 Chief complaint: syncope,acute respiratory failure with hypoxia,rig PMFSH Past Medical History Medical History (Updated 11/01/22 @ 22:06 by Yanet Dean PA-C) Asthma Atrial fibrillation Atrial flutter Atrophy of left kidney Bulging disc Cancer of left breast Status post mastectomy and chemotherapy. Chronic tom
--- NOTE | 2022-11-02 08:25 | PM.IMPN ---
Progress Note: A&P Assessment and Plan (1) Syncope: Code(s): R55 - Syncope and collapse Status: Acute Assessment and Plan: Likely secondary to orthostatic hypotension, currently on midodrine 2.5 mg t.i.d., will increase to 5 mg t.i.d. This is a known, chronic condition that is being worked up by Cardiology at [facility], she currently has a loop recorder in place, heart catheterization done about 2 weeks ago, currently in sinus rhythm (2) Dislocation of internal right hip prosthesis: Code(s): T84.020A - Dislocation of internal right hip prosthesis, initial encounter Status: Acute Assessment and Plan: Appreciate orthopedic surgery consultation, recommendations reviewed Follow-up PT/OT evaluation Care coordination for safe discharge plan pending (3) Chronic kidney disease: Code(s): N18.9 - Chronic kidney disease, unspecified Status: Acute Assessment and Plan: Baseline appears to be anywhere between 1.1 and 1.5, currently at 1.2 (4) Gastroesophageal reflux disease: Code(s): K21.9 - Gastro-esophageal reflux disease without esophagitis Status: Acute Assessment and Plan: Continue home meds (5) Obstructive sleep apnea: Code(s): G47.33 - Obstructive sleep apnea (adult) (pediatric) Status: Acute Assessment and Plan: Respiratory therapy for CPAP at night (6) Chronic diastolic heart failure: Code(s): I50.32 - Chronic diastolic (congestive) heart failure Status: Acute Assessment and Plan: Appears euvolemic, continue home meds (7) Elevated troponin: Code(s): R77.8 - Other specified abnormalities of plasma proteins Status: Acute Assessment and Plan: Troponin mildly bumped, stable Plan DVT prophylaxis with SCDs GI prophylaxis with PPI Code status full code? Subjective Date/time seen: 11/02/22 08:25 Interval history: No overnight events noted. No chest pain or shortness of breath. No nausea, vomiting or diarrhea. No fevers or chills. Rapid response called this morning when patient was working with PT/OT. Patient had episode of decreased consciousness with positional changes. Noted to have low blood pressure during this episode. Did not lose complete consciousness nor fall or pass out. No injury sustained. 98% on 2 L nasal cannula Review of Systems Review of Systems: 12 point review of systems was assessed and was negative except as noted in the HPI Exam Narrative: General: No acute distress, alert and oriented per baseline HEENT: Atraumatic, normocephalic, mucous membranes moist CV: Regular rate and rhythm, S1, S2 Lungs: Clear to auscultation bilaterally, no rales or crackles noted, no wheezes, good air entry Abdomen: Soft, nontender, nondistended Extremities: Normal to inspection Skin: No rashes noted, no lesions or wounds seen Psych: Euthymic, normal affect Objective Data Vital Signs Vital Signs: Vital Signs - 24 hr 11/01/22 08:44 11/01/22 09:22 11/01/22 09:23 Temperature Pulse Rate Pulse Rate [Apical] Pulse Rate [Right Radial] 105 H Respiratory Rate Blood Pressure Blood Pressure [Right Arm] Pulse Oximetry 55 L 97 Oxygen Delivery Room Air Nasal Cannula Oxygen Flow Rate 4 11/01/22 10:57 11/01/22 11:00 11/01/22 11:05 Temperature 97.6 F 97.7 F 97.6 F Pulse Rate Pulse Rate [Apical] 120 H 114 H 100 Pulse Rate [Right Radial] Respiratory Rate 27 H 18 20 Blood Pressure Blood Pressure [Right Arm] 159/119 H 121/85 Pulse Oximetry 100 100 100 Oxygen Delivery Nasal Cannula Nasal Cannula Bag Valve Mask Oxygen Flow Rate 4 4 11/01/22 11:10 11/01/22 11:15 11/01/22 11:20 Temperature 97.6 F 97.6 F 97.7 F Pulse Rate Pulse Rate [Apical] 108 H 109 H 116 H Pulse Rate [Right Radial] Respiratory Rate 18 24 H 24 H Blood Pressure Blood Pressure [Right Arm] 175/104 H 153/99 H 143/100 H Pulse Oximetry 100 100 100
[2022-11-02] MEDS: PANTOPRAZOLE 40 MG TABLET PO (08:54)
[2022-11-02] MEDS: CHOLECALCIFEROL 1,000 UNITS TABLET 1000 UNITS PO ×2 (08:54→16:37)
[2022-11-02] MEDS: MIDODRINE HCL 2.5 MG TABLET 5 MG PO ×3 (08:54→16:37)
[2022-11-02] MEDS: VITAMIN B COMPLEX CAPSULE 1 CAP PO (08:54)
[2022-11-02] MEDS: LORATADINE 10 MG TABLET PO (08:54)
[2022-11-02] MEDS: ASCORBIC ACID 500 MG TABLET PO (08:54)
[2022-11-02] MEDS: ASPIRIN 81 MG ENTERIC TABLET PO (08:54)
[2022-11-02] MEDS: lamoTRIgine 100 MG TABLET 200 MG PO ×2 (08:55→16:37)
[2022-11-02] MEDS: calcium polycarbophiL 625 MG TABLET 1250 MG PO ×2 (08:55→16:37)
[2022-11-02] MEDS: FAMOTIDINE 20 MG TABLET BY MOUTH (08:55)
[2022-11-02 11:18] LABS: Glucose Point of Care 131 mg/dl (65-105)
[2022-11-02 11:48] LABS: Glucose Point of Care 101 mg/dl (65-105)
[2022-11-02] MEDS: FLUTICASONE/SALMETEROL 230-21 MCG INHALER 1 PUFF 2 PUFF INHALATION (12:16)
--- NOTE | 2022-11-02 13:09 | PC.NURSE ---
Rapid response was called on this patient because while working with Therapy she had a syncopal episode. Dr Giron saw resident. No new orders. Will continue to monitor.
--- NOTE | 2022-11-02 14:53 | PC.NURSE ---
OT and PT attempted to work with patient, started to go down hill with consciousness, BP was taken supine 144/77, taken with head of bed raised 115/75. Therapy discontinued. Dr Giron notified. Awaiting orders.
[2022-11-02] MEDS: ACETAMINOPHEN 500 MG TABLET 1000 MG PO ×2 (15:04→21:47)
[2022-11-02] MEDS: SODIUM CHLORIDE 0.9% IV 1,000 ML 150 ML IV CONT ×2 (15:05→21:46)
[2022-11-02 16:21] LABS: Basophils Percent Auto 0.3 % (0.2-1.2); Eosinophils Absolute Auto 0.2 K/mm3 (0-0.3); Eosinophils Percent Auto 3.1 % (0-4.4); Hematocrit 33.7 % (37.0-47.0); Hemoglobin 10.9 g/dL (12.0-15.0); Immature Granulocyte Absolute 0.02 K/mm3 (0.00-0.031); Immature Granulocyte Percent A 0.3 % (0-0.5); Immature Platelet Fraction Pct 5.5 % (0.9-11.2); Lymphocytes Percent Auto 17.8 % (18.3-44.2); Mean Corpuscular HGB Conc 32.3 g/dl (32-36); Mean Corpuscular Hemoglobin 31.1 pg (26-34); Mean Platelet Volume 10.5 fl (7.4-10.4); Monocytes Absolute Auto 0.7 K/mm3 (0.1-0.6); Monocytes Percent Auto 10.8 % (2.6-8.5); Neutrophils Absolute Auto 4.2 K/mm3 (1.3-6.7); Neutrophils Percent Auto 67.7 % (45.5-73.1); Platelet Count Result 149 k/mm3 (150-375); Red Blood Count 3.51 M/mm3 (4.2-5.4); Red Cell Distribution Width 12.3 % (11.5-14.5); White Blood Count 6.2 K/mm3 (4.5-10.0)
--- NOTE | 2022-11-02 16:27 | PCPTNOTE ---
The patient treatment was not able to be completed this afternoon due to patient having drop in BP while working with OT when I arrived at bedside. Will plan to continue treatment per plan of care.
[2022-11-02 16:32] LABS: Alanine Aminotransferase 12 U/L (6-35); Albumin Level 3.7 g/dL (3.5-5.1); Alkaline Phosphatase 58 U/L (38-126); Anion Gap 1 mmol/L (8-16); Aspartate Amino Transferase 24 U/L (14-36); Bilirubin,Total 0.7 mg/dL (0.2-1.3); Blood Urea Nitrogen 47 mg/dL (7-17); Calcium 8.3 mg/dL (8.4-10.2); Carbon Dioxide 31 mmol/L (22-30); Chloride 96 mmol/L (98-107); Estimated CRCL calculation 35 ml/min; Estimated Glomerular Filt Rate 44; Glucose 111 mg/dL (65-110); Sodium 128 mmol/L (137-145)
[2022-11-02 18:57] LABS: Glucose Point of Care 116 mg/dl (65-105)
[2022-11-02] MEDS: VENLAFAXINE HCL 37.5 MG TABLET PO (20:04)
[2022-11-02] MEDS: MELOXICAM 7.5 MG TABLET BY MOUTH (20:04)
[2022-11-02] MEDS: MONTELUKAST SODIUM 10 MG TABLET BY MOUTH (20:04)
[2022-11-03] VITALS (12 sets, daily range): BP systolic 79–167; BP diastolic 61–105; PULSE 71–90; RESP 14–18; TEMP 36.1–36.6; O2SAT 95–100
[2022-11-03] MEDS: SODIUM CHLORIDE 0.9% IV 1,000 ML 150 ML IV CONT (05:25)
[2022-11-03] MEDS: ACETAMINOPHEN 500 MG TABLET 1000 MG PO ×3 (05:25→21:36)
--- NOTE | 2022-11-03 06:18 | PC.NURSE ---
ns decreased to 100ml/hr per DO Hopen
[2022-11-03 07:13] LABS: Basophils Percent Auto 0.5 % (0.2-1.2); Eosinophils Absolute Auto 0.2 K/mm3 (0-0.3); Hematocrit 32.1 % (37.0-47.0); Hemoglobin 10.6 g/dL (12.0-15.0); Immature Granulocyte Absolute 0.02 K/mm3 (0.00-0.031); Immature Granulocyte Percent A 0.5 % (0-0.5); Lymphocytes Absolute Auto 1.06 K/mm3 (0.9-3.2); Lymphocytes Percent Auto 26.5 % (18.3-44.2); Mean Corpuscular Hemoglobin 31.4 pg (26-34); Mean Platelet Volume 10.7 fl (7.4-10.4); Monocytes Absolute Auto 0.4 K/mm3 (0.1-0.6); Monocytes Percent Auto 10.8 % (2.6-8.5); Neutrophils Absolute Auto 2.3 K/mm3 (1.3-6.7); Neutrophils Percent Auto 56.7 % (45.5-73.1); Platelet Count Result 126 k/mm3 (150-375); Red Blood Count 3.38 M/mm3 (4.2-5.4)
[2022-11-03 07:31] LABS: Alanine Aminotransferase 12 U/L (6-35); Albumin Level 3.6 g/dL (3.5-5.1); Alkaline Phosphatase 57 U/L (38-126); Anion Gap 4 mmol/L (8-16); Aspartate Amino Transferase 26 U/L (14-36); Bilirubin,Total 0.5 mg/dL (0.2-1.3); Blood Urea Nitrogen 41 mg/dL (7-17); Calcium 8.3 mg/dL (8.4-10.2); Carbon Dioxide 29 mmol/L (22-30); Chloride 102 mmol/L (98-107); Estimated CRCL calculation 30 ml/min; Estimated Glomerular Filt Rate 37; Glucose 88 mg/dL (65-110); Potassium 4.2 mmol/L (3.4-5.0); Sodium 135 mmol/L (137-145)
[2022-11-03] MEDS: ASPIRIN 81 MG ENTERIC TABLET PO (08:51)
[2022-11-03] MEDS: ASCORBIC ACID 500 MG TABLET PO (08:51)
[2022-11-03] MEDS: VITAMIN B COMPLEX CAPSULE 1 CAP PO (08:52)
[2022-11-03] MEDS: calcium polycarbophiL 625 MG TABLET 1250 MG PO ×2 (08:52→17:11)
[2022-11-03] MEDS: CHOLECALCIFEROL 1,000 UNITS TABLET 1000 UNITS PO ×2 (08:52→17:11)
[2022-11-03] MEDS: LORATADINE 10 MG TABLET PO (08:52)
[2022-11-03] MEDS: PANTOPRAZOLE 40 MG TABLET PO (08:52)
[2022-11-03] MEDS: FAMOTIDINE 20 MG TABLET BY MOUTH (08:52)
[2022-11-03] MEDS: lamoTRIgine 100 MG TABLET 200 MG PO ×2 (08:52→17:11)
[2022-11-03] MEDS: MIDODRINE HCL 2.5 MG TABLET 5 MG PO ×3 (08:52→17:11)
--- NOTE | 2022-11-03 09:11 | PM.IMPN ---
Progress Note: A&P Assessment and Plan (1) Syncope: Code(s): R55 - Syncope and collapse Status: Acute Assessment and Plan: Likely secondary to orthostatic hypotension Came in on midodrine 2.5 mg t.i.d., increased to 5 mg t.i.d. Received IV fluids overnight, recheck orthostatic blood pressure pending, d/c pending improvement This is a known, chronic condition that is being worked up by Cardiology at [facility], she currently has a loop recorder in place, heart catheterization done about 2 weeks ago, currently in sinus rhythm Update: Orthostatic blood pressures still severely abnormal, consult placed to Cardiology (2) Dislocation of internal right hip prosthesis: Code(s): T84.020A - Dislocation of internal right hip prosthesis, initial encounter Status: Acute Assessment and Plan: Appreciate orthopedic surgery consultation, recommendations reviewed Follow-up PT/OT evaluation Care coordination for safe discharge plan pending (3) Chronic kidney disease: Code(s): N18.9 - Chronic kidney disease, unspecified Status: Acute Assessment and Plan: Baseline appears to be anywhere between 1.1 and 1.5, stable (4) Gastroesophageal reflux disease: Code(s): K21.9 - Gastro-esophageal reflux disease without esophagitis Status: Acute Assessment and Plan: Continue home meds (5) Obstructive sleep apnea: Code(s): G47.33 - Obstructive sleep apnea (adult) (pediatric) Status: Acute Assessment and Plan: Respiratory therapy for CPAP at night (6) Chronic diastolic heart failure: Code(s): I50.32 - Chronic diastolic (congestive) heart failure Status: Acute Assessment and Plan: Appears euvolemic, continue home meds (7) Elevated troponin: Code(s): R77.8 - Other specified abnormalities of plasma proteins Status: Acute Assessment and Plan: Troponin mildly bumped, stable Plan DVT prophylaxis with SCDs GI prophylaxis with PPI Code status full code? Subjective Date/time seen: 11/03/22 09:11 Interval history: No overnight events noted. No chest pain or shortness of breath. No nausea, vomiting or diarrhea. No fevers or chills. Blood pressure improved after IV fluids overnight. Orthostatic blood pressure pending. Patient states she feels much better today than yesterday. She was able to participate with therapy without feeling lightheaded. 98% on room air Review of Systems Review of Systems: 12 point review of systems was assessed and was negative except as noted in the HPI Exam Narrative: General: No acute distress, alert and oriented per baseline HEENT: Atraumatic, normocephalic, mucous membranes moist CV: Regular rate and rhythm, S1, S2 Lungs: Clear to auscultation bilaterally, no rales or crackles noted, no wheezes, good air entry Abdomen: Soft, nontender, nondistended Extremities: Normal to inspection Skin: No rashes noted, no lesions or wounds seen Psych: Euthymic, normal affect Objective Data Vital Signs Vital Signs: Vital Signs - 24 hr 11/02/22 10:12 11/02/22 12:00 11/02/22 14:00 Temperature 98.9 F Pulse Rate 83 95 Respiratory Rate 16 Blood Pressure 132/72 Pulse Oximetry 98 Oxygen Delivery Room Air 11/02/22 14:25 11/02/22 19:27 11/02/22 20:00 Temperature Pulse Rate 98 Respiratory Rate Blood Pressure Pulse Oximetry 98 Oxygen Delivery Room Air Room Air 11/02/22 21:32 11/03/22 00:00 11/03/22 06:00 Temperature 97.1 F L 96.9 F L Pulse Rate 94 89 84 Respiratory Rate 14 14 Blood Pressure 131/83 167/105 H Pulse Oximetry 96 98 Oxygen Delivery 11/03/22 04:00 11/03/22 06:19 Temperature 96.9 F L Pulse Rate 84 84 Respiratory Rate 14 Blood Pressure 167/105 H Pulse Oximetry 98 Oxygen Delivery Room Air Intake/Output Intake/Output: Intake & Output 10/31/22 11/01/22 11/02/22 11/03/22 23:59 23:59 23:59 23:59 In
[2022-11-03] MEDS: FLUTICASONE/SALMETEROL 230-21 MCG INHALER 1 PUFF 2 PUFF INHALATION (11:26)
--- NOTE | 2022-11-03 18:04 | PCRCNOTE ---
Pt. wears a CPAP at home but wants to bring her own unit in. Pt. states she will have it brought in tomorrow that she will be fine without it tonight.
[2022-11-03] MEDS: MELOXICAM 7.5 MG TABLET BY MOUTH (21:35)
[2022-11-03] MEDS: VENLAFAXINE HCL XR 37.5 MG CAP PO (21:36)
[2022-11-03] MEDS: MONTELUKAST SODIUM 10 MG TABLET BY MOUTH (21:36)
[2022-11-04] VITALS (10 sets, daily range): BP systolic 119–156; BP diastolic 80–98; PULSE 70–97; RESP 16–18; TEMP 36.4–36.6; O2SAT 99–100
[2022-11-04] MEDS: CALCIUM CARBONATE (TUMS) 500 MG (200 MG ELEMENTAL) PO ×2 (01:22→22:29)
[2022-11-04] MEDS: ACETAMINOPHEN 500 MG TABLET 1000 MG PO ×3 (05:37→20:23)
[2022-11-04 07:55] LABS: Basophils Percent Auto 0.3 % (0.2-1.2); Eosinophils Absolute Auto 0.1 K/mm3 (0-0.3); Eosinophils Percent Auto 3.5 % (0-4.4); Hematocrit 33.1 % (37.0-47.0); Hemoglobin 11.1 g/dL (12.0-15.0); Immature Granulocyte Absolute 0.01 K/mm3 (0.00-0.031); Immature Granulocyte Percent A 0.3 % (0-0.5); Immature Platelet Fraction Pct 3.8 % (0.9-11.2); Lymphocytes Absolute Auto 0.97 K/mm3 (0.9-3.2); Lymphocytes Percent Auto 24.3 % (18.3-44.2); Mean Corpuscular HGB Conc 33.5 g/dl (32-36); Mean Corpuscular Hemoglobin 31.4 pg (26-34); Mean Corpuscular Volume 93.5 fl (80-100); Mean Platelet Volume 10.2 fl (7.4-10.4); Monocytes Absolute Auto 0.4 K/mm3 (0.1-0.6); Monocytes Percent Auto 10.3 % (2.6-8.5); Neutrophils Absolute Auto 2.5 K/mm3 (1.3-6.7); Neutrophils Percent Auto 61.3 % (45.5-73.1); Platelet Count Result 150 k/mm3 (150-375); Red Blood Count 3.54 M/mm3 (4.2-5.4); Red Cell Distribution Width 11.9 % (11.5-14.5)
[2022-11-04 08:17] LABS: Alanine Aminotransferase 14 U/L (6-35); Albumin Level 3.9 g/dL (3.5-5.1); Alkaline Phosphatase 68 U/L (38-126); Anion Gap 5 mmol/L (8-16); Aspartate Amino Transferase 26 U/L (14-36); Bilirubin,Total 0.6 mg/dL (0.2-1.3); Blood Urea Nitrogen 30 mg/dL (7-17); Calcium 8.8 mg/dL (8.4-10.2); Carbon Dioxide 32 mmol/L (22-30); Chloride 103 mmol/L (98-107); Estimated CRCL calculation 38 ml/min; Estimated Glomerular Filt Rate 49; Glucose 90 mg/dL (65-110); Potassium 3.9 mmol/L (3.4-5.0); Sodium 140 mmol/L (137-145)
[2022-11-04] MEDS: FAMOTIDINE 20 MG TABLET BY MOUTH (08:43)
[2022-11-04] MEDS: PANTOPRAZOLE 40 MG TABLET PO (08:43)
[2022-11-04] MEDS: calcium polycarbophiL 625 MG TABLET 1250 MG PO ×2 (08:43→16:34)
[2022-11-04] MEDS: ASPIRIN 81 MG ENTERIC TABLET PO (08:43)
[2022-11-04] MEDS: lamoTRIgine 100 MG TABLET 200 MG PO ×2 (08:43→16:33)
[2022-11-04] MEDS: CHOLECALCIFEROL 1,000 UNITS TABLET 1000 UNITS PO ×2 (08:43→16:34)
[2022-11-04] MEDS: MIDODRINE HCL 2.5 MG TABLET 5 MG PO ×3 (08:43→16:33)
[2022-11-04] MEDS: ASCORBIC ACID 500 MG TABLET PO (08:43)
[2022-11-04] MEDS: LORATADINE 10 MG TABLET PO (08:43)
[2022-11-04] MEDS: VITAMIN B COMPLEX CAPSULE 1 CAP PO (08:43)
[2022-11-04] MEDS: FLUTICASONE/SALMETEROL 230-21 MCG INHALER 1 PUFF 2 PUFF INHALATION (09:08)
--- NOTE | 2022-11-04 14:19 | PM.CNCAR ---
Assessment and Plan Assessment and plan (1) Syncope: Qualifiers: Syncope type: unspecified Qualified Code(s): R55 - Syncope and collapse Code(s): R55 - Syncope and collapse Status: Acute Plan Challenging situation of a 72-year-old lady with continuing symptomatic/problematic orthostatic hypotension. She is presumably having recurrent syncopal episodes despite midodrine therapy. It when she is supine she is moderately hypertensive because of this. Obviously frequent falling since Thanksgiving is significant concern. She has been worked up completely at the [facility] there isn't any additional cardiac evaluation that needs to take place here at [facility]. There is indication in the chart that she had a catheterization a couple weeks ago with normal results I am not sure why that was done. She does not appear to be having any arrhythmic basis to this. Her AFib has been ablated in the past had her loop recorder has not demonstrated any arrhythmias that explain any of this. I would recommend trying to add some Florinef to the regimen I will go ahead and order that. The patient indicates that for some reason I had to see her all the rise transfer to a rehab facility. That is fine with me at this time there is no additional cardiac reason to keep her hospitalized here at [facility]. Obviously if she is moved to another facility they need to be completely aware of her tendency to become orthostatic so she is not up without assistance and they do not become alarmed and center back to the hospital when orthostatic problems occur or are recorded because there is not much else to do for that here in the hospital Godfrey Martinez MD [facility] History of Present Illness History of Present Illness Consult date/time: 11/04/22 14:19 Reason For Visit: syncope,acute respiratory failure with hypoxia,rig Narrative: This is a 72-year-old woman who I am seeing at the request of the hospitalist this afternoon because of concern regarding orthostatic hypotension. The patient has established history of problematic orthostasis for a number of years and is been followed by her primary care physician as well as corporate director talent assessment at the [facility]. She also has a diagnosis of atrial fibrillation which has been treated by electrophysiology at the [place] with ablation procedure in the past. She apparently was usual state of the rather stable health when she had a syncopal episode while walking in the hallway of her home are earlier this week she fell down and after wakening at significant right hip pain initially it was just thought this was a pulled muscle but after a couple of days she brought into the emergency room and was found to have dislocation of the right prosthetic hip. In the emergency room she was sedated in this was reduced and she was then admitted to the hospital. There are some records in chart from her fax machine repairer at the [place] indicating she has problematic orthostasis and has been treated with midodrine. Because of her recurrent syncopal episodes she loop recorder in place which has not shown any arrhythmias nor any recurrence of atrial fibrillation. The patient states that her physician in recent appointment demonstrated or express concern that she might have some episodes of atrial flutter. For this reason ongoing treatment with Xarelto has been recommended. Several physicians are appropriately concerned that she is anticoagulated with Xarelto and taking frequent falls. She states that she has a syncopal episode on an average of about once a month at this time. She had 2 or 3 episodes since which is more frequent than usual. She is compliant with her midodrine. The chart also indicates she had a heart catheterization at the [facility] about 2 weeks ago at with normal findings. I can not tell speaking to her why that procedure would have been done. In any bryant
--- NOTE | 2022-11-04 14:26 | PM.IMPN ---
Progress Note: A&P Assessment and Plan (1) Syncope: Code(s): R55 - Syncope and collapse Status: Acute Assessment and Plan: Likely secondary to orthostatic hypotension Came in on midodrine 2.5 mg t.i.d., increased to 5 mg t.i.d. Received IV fluids overnight, recheck orthostatic blood pressure much improved Cardiology at [facility], she currently has a loop recorder in place, heart catheterization done about 2 weeks ago, currently in sinus rhythm patient going to rehab regard to her waiting for Cardiology input (2) Dislocation of internal right hip prosthesis: Code(s): T84.020A - Dislocation of internal right hip prosthesis, initial encounter Status: Acute Assessment and Plan: Appreciate orthopedic surgery consultation, recommendations reviewed Follow-up PT/OT evaluation Care coordination for safe discharge plan pending (3) Chronic kidney disease: Code(s): N18.9 - Chronic kidney disease, unspecified Status: Acute Assessment and Plan: Baseline appears to be anywhere between 1.1 and 1.5, stable (4) Gastroesophageal reflux disease: Code(s): K21.9 - Gastro-esophageal reflux disease without esophagitis Status: Acute Assessment and Plan: Continue home meds (5) Obstructive sleep apnea: Code(s): G47.33 - Obstructive sleep apnea (adult) (pediatric) Status: Acute Assessment and Plan: continue to monitor (6) Chronic diastolic heart failure: Code(s): I50.32 - Chronic diastolic (congestive) heart failure Status: Acute Assessment and Plan: Appears euvolemic, continue home meds Xarelto has been restarted (7) Elevated troponin: Code(s): R77.8 - Other specified abnormalities of plasma proteins Status: Acute Assessment and Plan: stable Plan DVT prophylaxis. GI prophylaxis. All records reviewed Discussed plan of care with the nursing staff and with the patient in detail. Answered all questions and concerns from the patient. All labs have been reviewed. Code status updated dictation may have been done utilizing a voice recognition system. Attempts have been made to correct errors. However, there may be uncorrected grammatical, spelling, and recognition errors present. Code status full code? Time Spent With Patient Time with patient: 25 - 35 minutes Subjective Date/time seen: 11/04/22 14:26 Interval history: dizziness no chest pain or shortness of breath Review of Systems Review of Systems: All systems reviewed & are unremarkable except as noted in HPI and below Exam Narrative: GENERAL: Well appearing, well-nourished, non-toxic, in no acute distress. HEAD: Normocephalic, atraumatic. NECK: Supple. No adenopathy, no masses. RESPIRATORY: Airway patent, respirations nonlabored. Clear to auscultation bilaterally, no rales, rhonchi, wheezing. CARDIOVASCULAR: Regular rate and rhythm without murmurs, rubs, or gallops. Peripheral pulses 2+ and equal bilaterally. ABDOMINAL: Soft, nontender, nondistended, no hepatosplenomegaly. Normoactive BS. MUSCULOSKELETAL: no Epigastric and no hypochondrial tenderness SKIN: Warm, dry, normal color. No rashes. NEURO: A&O X3. Moves all extremities PSYCHIATRIC: Appropriate mood and affect. Normal interaction. Objective Data Vital Signs Vital Signs: Vital Signs - 24 hr 11/03/22 16:00 11/03/22 21:31 11/03/22 20:00 Temperature 36.6 C Pulse Rate 75 81 Respiratory Rate 16 Blood Pressure 144/90 H Pulse Oximetry 100 Oxygen Delivery Room Air 11/03/22 20:00 11/04/22 00:00 11/04/22 04:00 Temperature Pulse Rate 90 86 85 Respiratory Rate Blood Pressure Pulse Oximetry Oxygen Delivery 11/04/22 06:00 11/04/22 09:09 11/04/22 08:25 Temperature 36.6 C Pulse Rate 74 70 Respiratory Rate 18 16 Blood Pressure 156/98 H Pulse Oximetry 99 Oxygen Delivery Room Air Intake/Output Intak
[2022-11-04 15:16] LABS: Hematocrit 33.2 % (37.0-47.0); Mean Corpuscular HGB Conc 33.1 g/dl (32-36); Mean Corpuscular Hemoglobin 31.3 pg (26-34); Mean Corpuscular Volume 94.3 fl (80-100); Platelet Count Result 149 k/mm3 (150-375); Red Blood Count 3.52 M/mm3 (4.2-5.4); White Blood Count 3.8 K/mm3 (4.5-10.0)
[2022-11-04 15:29] LABS: Alanine Aminotransferase 14 U/L (6-35); Albumin Level 3.9 g/dL (3.5-5.1); Alkaline Phosphatase 62 U/L (38-126); Anion Gap 6 mmol/L (8-16); Aspartate Amino Transferase 24 U/L (14-36); Bilirubin,Total 0.4 mg/dL (0.2-1.3); Blood Urea Nitrogen 30 mg/dL (7-17); Calcium 8.8 mg/dL (8.4-10.2); Carbon Dioxide 31 mmol/L (22-30); Chloride 103 mmol/L (98-107); Estimated CRCL calculation 32 ml/min; Estimated Glomerular Filt Rate 40; Glucose 134 mg/dL (65-110); Potassium 3.6 mmol/L (3.4-5.0); Sodium 140 mmol/L (137-145)
[2022-11-04] MEDS: FLUDROCORTISONE ACETATE 0.1 MG TABLET PO (16:34)
[2022-11-04] MEDS: MELOXICAM 7.5 MG TABLET BY MOUTH (20:22)
[2022-11-04] MEDS: VENLAFAXINE HCL XR 37.5 MG CAP PO (20:23)
[2022-11-04] MEDS: MONTELUKAST SODIUM 10 MG TABLET BY MOUTH (20:23)
[2022-11-05] VITALS (9 sets, daily range): BP systolic 98–183; BP diastolic 78–106; PULSE 52–96; RESP 12–20; TEMP 36.2–36.6; O2SAT 96–99
--- NOTE | 2022-11-05 01:36 | PCRCNOTE ---
window of time for administration has passed. See next available administration
[2022-11-05] MEDS: ACETAMINOPHEN 500 MG TABLET 1000 MG PO ×3 (06:27→20:31)
[2022-11-05 07:52] LABS: Basophils Percent Auto 0.5 % (0.2-1.2); Eosinophils Absolute Auto 0.1 K/mm3 (0-0.3); Eosinophils Percent Auto 3.5 % (0-4.4); Hematocrit 33.9 % (37.0-47.0); Hemoglobin 11.2 g/dL (12.0-15.0); Immature Granulocyte Absolute 0.01 K/mm3 (0.00-0.031); Immature Granulocyte Percent A 0.2 % (0-0.5); Lymphocytes Absolute Auto 1.12 K/mm3 (0.9-3.2); Lymphocytes Percent Auto 27.9 % (18.3-44.2); Mean Corpuscular Hemoglobin 31.2 pg (26-34); Mean Corpuscular Volume 94.4 fl (80-100); Mean Platelet Volume 10.7 fl (7.4-10.4); Monocytes Absolute Auto 0.4 K/mm3 (0.1-0.6); Monocytes Percent Auto 10.2 % (2.6-8.5); Neutrophils Absolute Auto 2.3 K/mm3 (1.3-6.7); Neutrophils Percent Auto 57.7 % (45.5-73.1); Platelet Count Result 162 k/mm3 (150-375); Red Blood Count 3.59 M/mm3 (4.2-5.4); Red Cell Distribution Width 11.9 % (11.5-14.5)
[2022-11-05 08:09] LABS: Alanine Aminotransferase 12 U/L (6-35); Alkaline Phosphatase 61 U/L (38-126); Anion Gap 6 mmol/L (8-16); Aspartate Amino Transferase 27 U/L (14-36); Bilirubin,Total 0.4 mg/dL (0.2-1.3); Blood Urea Nitrogen 27 mg/dL (7-17); Calcium 8.8 mg/dL (8.4-10.2); Carbon Dioxide 30 mmol/L (22-30); Chloride 101 mmol/L (98-107); Estimated CRCL calculation 35 ml/min; Estimated Glomerular Filt Rate 44; Glucose 82 mg/dL (65-110); Potassium 3.8 mmol/L (3.4-5.0); Sodium 137 mmol/L (137-145)
[2022-11-05] MEDS: FLUDROCORTISONE ACETATE 0.1 MG TABLET PO (08:19)
[2022-11-05] MEDS: CHOLECALCIFEROL 1,000 UNITS TABLET 1000 UNITS PO ×2 (08:19→17:55)
[2022-11-05] MEDS: ASCORBIC ACID 500 MG TABLET PO (08:19)
[2022-11-05] MEDS: VITAMIN B COMPLEX CAPSULE 1 CAP PO (08:19)
[2022-11-05] MEDS: lamoTRIgine 100 MG TABLET 200 MG PO ×2 (08:19→17:55)
[2022-11-05] MEDS: ASPIRIN 81 MG ENTERIC TABLET PO (08:19)
[2022-11-05] MEDS: calcium polycarbophiL 625 MG TABLET 1250 MG PO ×2 (08:19→17:55)
[2022-11-05] MEDS: PANTOPRAZOLE 40 MG TABLET PO (08:19)
[2022-11-05] MEDS: RIVAROXABAN 15 MG TABLET PO (08:20)
[2022-11-05] MEDS: FAMOTIDINE 20 MG TABLET BY MOUTH (08:20)
[2022-11-05] MEDS: MIDODRINE HCL 2.5 MG TABLET 5 MG PO ×3 (08:20→17:55)
[2022-11-05] MEDS: LORATADINE 10 MG TABLET PO (08:20)
[2022-11-05] MEDS: FLUTICASONE/SALMETEROL 230-21 MCG INHALER 1 PUFF 2 PUFF INHALATION ×2 (10:35→22:03)
--- NOTE | 2022-11-05 13:57 | PM.IMPN ---
Progress Note: A&P Assessment and Plan (1) Syncope: Code(s): R55 - Syncope and collapse Status: Acute Assessment and Plan: Likely secondary to orthostatic hypotension on midodrine 2.5 mg t.i.d., increased to 5 mg t.i.d. Received IV fluids overnight, recheck orthostatic blood pressure which was relatively high today patient still symptomatic patient started p.r.n. floinef today by the quality assurance monitor Cardiology at [facility], she currently has a loop recorder in place, heart catheterization done about 2 weeks ago, currently in sinus rhythm patient going to rehab r in a.m. patient will need assistance to the bathroom and showers as patient has symptomatic orthostatic hypotension further plan at this this time per Cardiology (2) Dislocation of internal right hip prosthesis: Code(s): T84.020A - Dislocation of internal right hip prosthesis, initial encounter Status: Acute Assessment and Plan: Appreciate orthopedic surgery consultation, recommendations reviewed Follow-up PT/OT evaluation Care coordination for safe discharge plan pending (3) Chronic kidney disease: Code(s): N18.9 - Chronic kidney disease, unspecified Status: Acute Assessment and Plan: Baseline (4) Gastroesophageal reflux disease: Code(s): K21.9 - Gastro-esophageal reflux disease without esophagitis Status: Acute Assessment and Plan: Continue home meds (5) Obstructive sleep apnea: Code(s): G47.33 - Obstructive sleep apnea (adult) (pediatric) Status: Acute Assessment and Plan: continue to monitor (6) Chronic diastolic heart failure: Code(s): I50.32 - Chronic diastolic (congestive) heart failure Status: Acute Assessment and Plan: Appears euvolemic, continue home meds Xarelto has been restarted (7) Elevated troponin: Code(s): R77.8 - Other specified abnormalities of plasma proteins Status: Acute Assessment and Plan: stable Plan DVT prophylaxis. GI prophylaxis. All records reviewed Discussed plan of care with the nursing staff and with the patient in detail. Answered all questions and concerns from the patient. All labs have been reviewed. Code status updated dictation may have been done utilizing a voice recognition system. Attempts have been made to correct errors. However, there may be uncorrected grammatical, spelling, and recognition errors present. Code status full code? Time Spent With Patient Time with patient: 25 - 35 minutes Subjective Date/time seen: 11/05/22 13:57 Interval history: no new complaint Review of Systems Review of Systems: All systems reviewed & are unremarkable except as noted in HPI and below Exam Narrative: GENERAL: Well appearing, well-nourished, non-toxic, in no acute distress. HEAD: Normocephalic, atraumatic. NECK: Supple. No adenopathy, no masses. RESPIRATORY: Airway patent, respirations nonlabored. Clear to auscultation bilaterally, no rales, rhonchi, wheezing. CARDIOVASCULAR: Regular rate and rhythm without murmurs, rubs, or gallops. Peripheral pulses 2+ and equal bilaterally. ABDOMINAL: Soft, nontender, nondistended, no hepatosplenomegaly. Normoactive BS. MUSCULOSKELETAL: no Epigastric and no hypochondrial tenderness SKIN: Warm, dry, normal color. No rashes. NEURO: A&O X3. Moves all extremities PSYCHIATRIC: Appropriate mood and affect. Normal interaction. Objective Data Vital Signs Vital Signs: Vital Signs - 24 hr 11/04/22 16:18 11/04/22 16:00 11/04/22 20:00 Temperature 36.6 C Pulse Rate 76 97 78 Respiratory Rate 18 Blood Pressure 119/80 Pulse Oximetry 99 Oxygen Delivery 11/04/22 20:00 11/04/22 22:00 11/05/22 00:00 Temperature 36.4 C L Pulse Rate 76 75 90 Respiratory Rate 18 16 Blood Pressure 133/97 H Pulse Oximetry 99 100 Oxygen Delivery Room Air 11/05/22 04:00 11/05/22 06:00 11/05/22 08:20 T
[2022-11-05] MEDS: MELOXICAM 7.5 MG TABLET BY MOUTH (20:30)
[2022-11-05] MEDS: VENLAFAXINE HCL XR 37.5 MG CAP PO (20:30)
[2022-11-05] MEDS: MONTELUKAST SODIUM 10 MG TABLET BY MOUTH (20:31)
[2022-11-06] VITALS: PULSE 91
[2022-11-06] MEDS: traZODone HCL 50 MG TABLET PO (03:43)
[2022-11-06 04:00] VITALS: PULSE 87
[2022-11-06 05:42] VITALS: BP 88/59; PULSE 85; RESP 12; TEMP 37.6; O2SAT 96
[2022-11-06] MEDS: ACETAMINOPHEN 500 MG TABLET 1000 MG PO (05:46)
[2022-11-06 07:00] LABS: Alanine Aminotransferase 13 U/L (6-35); Albumin Level 3.9 g/dL (3.5-5.1); Alkaline Phosphatase 60 U/L (38-126); Anion Gap 7 mmol/L (8-16); Aspartate Amino Transferase 22 U/L (14-36); Bilirubin,Total 0.4 mg/dL (0.2-1.3); Blood Urea Nitrogen 32 mg/dL (7-17); Calcium 8.9 mg/dL (8.4-10.2); Carbon Dioxide 30 mmol/L (22-30); Chloride 99 mmol/L (98-107); Estimated CRCL calculation 28 ml/min; Estimated Glomerular Filt Rate 34; Glucose 106 mg/dL (65-110); Potassium 3.5 mmol/L (3.4-5.0); Sodium 136 mmol/L (137-145)
[2022-11-06 07:03] LABS: Basophils Percent Auto 0.5 % (0.2-1.2); Eosinophils Absolute Auto 0.1 K/mm3 (0-0.3); Eosinophils Percent Auto 2.5 % (0-4.4); Hematocrit 32.5 % (37.0-47.0); Hemoglobin 10.7 g/dL (12.0-15.0); Immature Granulocyte Absolute 0.01 K/mm3 (0.00-0.031); Immature Granulocyte Percent A 0.3 % (0-0.5); Lymphocytes Absolute Auto 0.92 K/mm3 (0.9-3.2); Lymphocytes Percent Auto 23.1 % (18.3-44.2); Mean Corpuscular HGB Conc 32.9 g/dl (32-36); Mean Corpuscular Volume 94.2 fl (80-100); Mean Platelet Volume 10.3 fl (7.4-10.4); Monocytes Absolute Auto 0.3 K/mm3 (0.1-0.6); Monocytes Percent Auto 7.8 % (2.6-8.5); Neutrophils Absolute Auto 2.6 K/mm3 (1.3-6.7); Neutrophils Percent Auto 65.8 % (45.5-73.1); Platelet Count Result 159 k/mm3 (150-375); Red Blood Count 3.45 M/mm3 (4.2-5.4)
[2022-11-06 08:05] VITALS: PULSE 98
[2022-11-06] MEDS: calcium polycarbophiL 625 MG TABLET 1250 MG PO (08:50)
[2022-11-06] MEDS: lamoTRIgine 100 MG TABLET 200 MG PO (08:53)
[2022-11-06] MEDS: MIDODRINE HCL 2.5 MG TABLET 5 MG PO (08:54)
[2022-11-06] MEDS: RIVAROXABAN 15 MG TABLET PO (08:54)
[2022-11-06] MEDS: PANTOPRAZOLE 40 MG TABLET PO (08:54)
[2022-11-06] MEDS: ASCORBIC ACID 500 MG TABLET PO (08:54)
[2022-11-06] MEDS: FLUDROCORTISONE ACETATE 0.1 MG TABLET PO (08:54)
[2022-11-06] MEDS: CHOLECALCIFEROL 1,000 UNITS TABLET 1000 UNITS PO (08:55)
[2022-11-06] MEDS: LORATADINE 10 MG TABLET PO (08:55)
[2022-11-06] MEDS: VITAMIN B COMPLEX CAPSULE 1 CAP PO (08:55)
[2022-11-06] MEDS: ASPIRIN 81 MG ENTERIC TABLET PO (08:58)
[2022-11-06] MEDS: FLUTICASONE/SALMETEROL 230-21 MCG INHALER 1 PUFF 2 PUFF INHALATION (09:20)
--- NOTE | 2022-11-06 12:46 | PM.DS ---
DS: Admitting Diagnosis Discharge Date 11/06/22 Admitting Diagnosis Syncope DS: Discharge Diagnosis Discharge Diagnosis (1) Syncope: Qualifiers: Syncope type: unspecified Qualified Code(s): R55 - Syncope and collapse Code(s): R55 - Syncope and collapse Status: Acute (2) Elevated troponin: Code(s): R77.8 - Other specified abnormalities of plasma proteins Status: Acute (3) Gastroesophageal reflux disease: Code(s): K21.9 - Gastro-esophageal reflux disease without esophagitis Status: Acute (4) Iron deficiency anemia: Qualifiers: Iron deficiency anemia type: other iron deficiency Qualified Code(s): D50.8 - Other iron deficiency anemias Code(s): D50.9 - Iron deficiency anemia, unspecified Status: Acute (5) Hypertensive heart disease with heart failure: Code(s): I11.0 - Hypertensive heart disease with heart failure Status: Acute (6) Dislocation of hip, right, closed: Qualifiers: Encounter type: initial encounter Qualified Code(s): S73.004A - Unspecified dislocation of right hip, initial encounter Code(s): S73.004A - Unspecified dislocation of right hip, initial encounter Status: Acute (7) Orthostatic hypotension: Code(s): I95.1 - Orthostatic hypotension Status: Acute DS: Summary Hospital Course Hospital Course: patient is a 72-year-old female with multiple medical problems of atrial fibrillation status post cardiac ablation watchman procedure, preserved ejection fraction heart failure, chronic renal failure, anemia, GERD, comes to the hospital complaining of hip pain status post fall on Sunday also episode of lightheadedness and dizziness. Extensive workup was done at the hospital patient seen by Cardiology patient recently had a cardiac cath done about 2 weeks ago at [facility] which was unremarkable. Patient denies fever chills nausea vomiting diarrhea. Patient was noted to be orthostatic hypotensive responded well to midodrine and Florinef. Patient's hip pain is being treated by meloxicam. Previous history of atrial fibrillation for which she takes Xarelto. Spoke to patient at length etiology of syncope is cardiogenic known further workup or intervention at this point. Cardiology consult appreciated patient has a dislocated prosthetic right hip which needs to be seen by orthopod. Currently is has been reduced. Reduction was done under conscious sedation with close monitoring of the heart rate and blood pressure. Answered all questions patient going to rehab will continue to monitor as an outpatient. Will need assistance getting up and getting into showers patient high risk for fall. Time spent discussing smoking cessation with patient: more than 10 minutes Status at Discharge Functional status at discharge: uses cane/walker Time Spent with Patient Time attestation: Total time spent providing and/or coordinating discharge services: Exam Narrative: GENERAL: Well appearing, well-nourished, non-toxic, in no acute distress. HEAD: Normocephalic, atraumatic. NECK: Supple. No adenopathy, no masses. RESPIRATORY: Airway patent, respirations nonlabored. Clear to auscultation bilaterally, no rales, rhonchi, wheezing. CARDIOVASCULAR: Regular rate and rhythm without murmurs, rubs, or gallops. Peripheral pulses 2+ and equal bilaterally. ABDOMINAL: Soft, nontender, nondistended, no hepatosplenomegaly. Normoactive BS. MUSCULOSKELETAL: no Epigastric and no hypochondrial tenderness SKIN: Warm, dry, normal color. No rashes. NEURO: A&O X3. Moves all extremities PSYCHIATRIC: Appropriate mood and affect. Normal interaction. DS: Data Data Completed and Pending Labs on day of discharge: Labs from last 24 hours 11/06/22 11/06/22 06:21 06:21 WBC 4.0 L RBC 3.45 L Hgb 10.7 L Hct 32.5 L MCV 94.2 MCH 31.0 MCHC 32.9 RDW 12.0 Plt Count 159 MPV 10.3 Immature Gran % (Auto) 0.3 Neut
[2022-11-06 13:57] VITALS: BP 95/70; PULSE 94; RESP 16; TEMP 36.5; O2SAT 100
[2022-11-06 14:56] LABS: EDCOVIDSCREEN Negative (Negative)
== END 2022-11-06 15:30 | DRG 560 ==
LOC: ANHED 15:57 → ANH3MEDSUR 17:22
PROVIDERS: Physician Assistant; Student in an Organized Health Care Education/Training Program; Admitting Provider Internal Medicine; Emergency Provider Emergency Medicine; PCP Family Medicine; Visit Provider Internal Medicine
DX: T84.020A Dislocation of internal right hip prosthesis, initial encounter (principal); I13.0 Hypertensive heart and chronic kidney disease with heart failure and stage 1 through stage 4 chronic kidney disease, or unspecified chronic kidney disease; I50.32 Chronic diastolic (congestive) heart failure; N18.9 Chronic kidney disease, unspecified; K21.9 Gastro-esophageal reflux disease without esophagitis; G47.33 Obstructive sleep apnea (adult) (pediatric); I48.91 Unspecified atrial fibrillation; I95.1 Orthostatic hypotension; Z85.3 Personal history of malignant neoplasm of breast; Z90.12 Acquired absence of left breast and nipple; Z92.21 Personal history of antineoplastic chemotherapy; G62.9 Polyneuropathy, unspecified; Z20.822 Contact with and (suspected) exposure to COVID-19; Z96.653 Presence of artificial knee joint, bilateral; Z83.3 Family history of diabetes mellitus; Z80.42 Family history of malignant neoplasm of prostate; Z80.3 Family history of malignant neoplasm of breast; Z80.1 Family history of malignant neoplasm of trachea, bronchus and lung; Z87.891 Personal history of nicotine dependence; Z79.82 Long term (current) use of aspirin; Z79.51 Long term (current) use of inhaled steroids; Z79.899 Other long term (current) drug therapy; Z91.041 Radiographic dye allergy status; Z79.01 Long term (current) use of anticoagulants
CPT/HCPCS: 27265; 36415; 70450; 71045; 72125; 73501; 73502; 73552; 80053; 82948; 84484; 85025; 85027; 85055; 87426; 87636; 93005; 94640; 96365; 96375; 97110; 97116; 97161; 97165; 97530; 97535; 99285; A9270; C9803; G0378; J0131; J2270; J2405; J2704; J7030; J7040; J7050; J7070; L1830; U0003; U0005